=== PATIENT | female | born 1985 | race Caucasian/White ===

== ENCOUNTER 2016-08-23 19:44 | Emergency (ER) | payer OTHER ==
[2016-08-23] MEDS ORDERED: BACIGUENT PACKET TP ONE (20:35)
[2016-08-23] MEDS ORDERED: TYLENOL 325 MG PO ONE (20:35)
[2016-08-23] MEDS ORDERED: Adacel Vial IM ONE ×2 (20:35→20:56)
[2016-08-23] MEDS ORDERED: XYLOCAINE 1% HCL 20 ML MDV IJ ONE (20:35)
--- NOTE | 2016-08-23 20:41 | ERPHSYRPT ---
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 According to patient she was playing with a client having a pillow fight when she stood up and hit her head on a drywall. Initially patient's did not have any of pain however now she states that she is starting to have throbbing on the left side of her head. She has an approximately 3 cm laceration to her left scalp parietal region. She denies any loss of consciousness. Past medical history includes COPD, cervical cancer, anxiety depression., PTSD patient has hysterectomy secondary to cervical cancer. HE can go past surgical history includes hysterectomy D&C pump ectopy and orthopedic surgery. Occurred: this evening Severity: moderate Head Injury Location: parietal (left parietal) Method of Injury: other (hit head on corner of drywall) Loss of Consciousness: no loss of consciousness Associated Symptoms: headaches, No nausea, No vomiting, No abdominal pain, No shortness of breath, No heartburn, No diaphoresis, No cough, No chills, No chest pain, No fever, No loss of appetite, No malaise, No rash, No syncope, No seizure, No weakness Allergies/Adverse Reactions: No Known Drug Allergies Allergy (Verified 08/23/16 20:23) Home Medications: No Reportable Medications [No Reported Medications] 08/23/16 [History] Hx Tetanus, Diphtheria Vaccination/Date Given: No Hx Influenza Vaccination/Date Given: No Hx Pneumococcal Vaccination/Date Given: No - Review of Systems Constitutional: Other (3 cm scalp laceration left parietal region), No Fever, No Chills Eyes: No Symptoms Ears, Nose, & Throat: No Symptoms Respiratory: No Cough, No Dyspnea Cardiac: No Chest Pain, No Edema, No Syncope Abdominal/Gastrointestinal: No Abdominal Pain, No Nausea, No Vomiting, No Diarrhea Genitourinary Symptoms: No Dysuria Musculoskeletal: No Back Pain, No Neck Pain Skin: Other (3 cm scalp laceration left parietal region) Neurological: Headache, Other (head contusion), No Dizziness, No Focal Weakness , No Gait Changes, No Irritability, No Lethargy, No Paralysis, No Parasthesia, No Seizure, No Speech Changes, No Tics, No Tremors, No Vertigo Psychological: No Symptoms Endocrine: No Symptoms All Other Systems: Reviewed and Negative - Past Medical History Pertinent Past Medical History: Yes Neurological History: No Pertinent History ENT History: No Pertinent History Cardiac History: No Pertinent History Respiratory History: COPD Endocrine Medical History: No Pertinent History Musculoskeletal History: Fractures GI Medical History: No Pertinent History History: Other Psycho-Social History: Anxiety, Depression, Other Female Reproductive Disorders: Cervical Cancer Other Medical History: Orthopedics fractures. pt had a hysterectomy d/t cervical cancer when she was 27 . ptsd - Past Surgical History Past Surgical History: Yes Neuro Surgical History: No Pertinent History Cardiac: No Pertinent History Respiratory: No Pertinent History Gastrointestinal: Exploratory Laparoscopy Genitourinary: No Pertinent History Musculoskeletal: Orthopedic Surgery Female Surgical History: Hysterectomy, Dilation & Curettage, Section, Lumpectomy Other Surgical History: D&C, DIAGNOSTIC LAPROSCOPIC, LUMPECTOMY LEFT BREAST, 3 LYMPHNODES REMOVED FROM LEFT ARMPIT, UPPER/LOWER SCOPE. - Social History Smoking Status: Current every day smoker How long have you smoked: 20 years Exposure to second hand smoke: No Drug Use: marijuana Patient Lives Alone: No - Female History Hx Last Menstrual Period: hyst - Nursing Vital Signs Nursing Vital Signs: Initial Vital Signs Temperature 98.9 F Temperature Source Oral Pulse Rate 104 Respiratory Rate 18 Blood Pressure [] 120/74 Pain Intensity 4 - Lloyd Coma Score Best Eye Response (Riky): (4) open spontaneously Best Verbal Response (Riky): (5) oriented Best Motor Response (Riky): (6) obeys commands Lloyd Total: 15 - Physical Exam General Appearance: mild distress Head Injury: No no evidence of injury (3 cm hematoma left parietal region . 3 cm scalp laceration left parietal region) Eye Exam: bilateral eye: normal inspection, PERRL, EOMI, other (fundi are unremarkable) ENT Exam: airway nml Neck Exam: supple, trachea midline, full range of motion, normal alignment, other (no neck tenderness) Cardiovascular/Respiratory Exam: chest non-tender, normal breath sounds, regular rate/rhythm Gastrointestinal/Abdominal Exam: soft, non tender, no distention Back Exam: normal inspection, No vertebral tenderness Extremity Exam: non-tender, normal range of motion, normal inspection Mental Status Exam: alert, oriented x 3, cooperative lever tender Exam: normal hearing, normal speech, PERRL, tongue midline, No abnormal eye position, No abnormal gag reflex, No abnormal pupil position, No abnormal speech , No facial asymmetry, No facial droop, No facial paresthesias, No facial weakness, No gaze palsy, No hearing deficit (R), No hearing deficit (L), No tongue deviation to R, No tongue deviation to L Coordination/Gait Exam: normal finger to nose, normal gait, normal cerebellar function, negative Romberg's sign, No positive Romberg's sign, No abnormal gait , No ABN nose to finger (R), No ABN nose to finger (L) Motor/Sensory Exam: no motor deficit, no sensory deficit, CN II-XII intact DTR Exam: ankle (R): 2+, ankle (L): 2+ Skin Exam: normal color, warm, dry, other (3 cm scalp laceration left parietal region), No rash SpO2 Interpretation: normal SpO2: 99 Oxygen Delivery: Room Air - Course Nursing assessment & vital signs reviewed: Yes - CT Exams Head CT Interpretation: Negative, Tele-radiologist Report (head ct:no acute intracranioal abnormality), Other Ordered Tests: Active Orders 24 hr Category Date Time Status Wound Care STAT Care 08/23/16 20:35 Active HEAD WITHOUT CONTRAST [CT] Stat Exams 08/23/16 20:34 Taken Medication Summary Discontinued Medications Generic Name Dose Route Start Last Admin Trade Name Florina PRN Reason Stop Dose Admin Acetaminophen 650 mg 08/23/16 20:35 08/23/16 21:01 Tylenol 325 Mg PO 08/23/16 20:36 650 mg STAT ONE Administration Acetaminophen Confirm 08/23/16 20:56 Tylenol 325 Mg Administered 08/23/16 20:57 Dose 650 mg .ROUTE .STK-MED ONE Bacitracin 0.9 gm 08/23/16 20:35 08/23/16 21:00 Baciguent Packet TP 08/23/16 20:36 0.9 gm STAT ONE Administration Bacitracin Confirm 08/23/16 20:56 Baciguent Packet Administered 08/23/16 20:57 Dose 1 gm .ROUTE .STK-MED ONE Diphtheria/Tetanus/Acell Pertussis 0.5 ml 08/23/16 20:35 08/23/16 20:59 Adacel Vial IM 08/23/16 20:36 0.5 ml .ONCE ONE Administration Diphtheria/Tetanus/Acell Pertussis Confirm 08/23/16 20:56 Adacel Vial Administered 08/23/16 20:57 Dose 0.5 ml IM .STK-MED ONE Lidocaine HCl 5 ml 08/23/16 20:35 08/23/16 21:01 Xylocaine 1% Hcl 20 Ml Mdv IJ 08/23/16 20:36 5 ml STAT ONE Administration Lidocaine HCl Confirm 08/23/16 20:56 Xylocaine 1% Hcl 20 Ml Mdv Administered 08/23/16 20:57 Dose 5 ml .ROUTE .STK-MED ONE - Progress Progress: improved Progress Note: 08/23/16 21:[address] no acute changes. Laceration 3 cm left scalp parietal area. Laceration sterilely prepped and draped laceration anesthetized with 1% lidocaine. Laceration repaired with 5 surgical silvio. Bacitracin is applied. - Departure Time of Disposition: 21:42 Departure Disposition: Home Clinical Impression: Scalp laceration Head contusion Qualifiers: Encounter type: initial encounter Contusion of head detail: unspecified part of head Qualified Code(s): S00.93XA - Contusion of unspecified part of head, initial encounter Condition: Fair Critical Care Time: No Referrals: ALESSIA MYERS [Primary Care Provider] - Instructions: Care for a Laceration After Repair Additional Instructions: Return home Cold packs to area 24-48 hours. Bacitracin to area until healed. Tylenol every 4 hours as needed for pain. [place] out in 5-7 days. Follow-up with your family doctor or return if signs of infection or problems. Return for acute distress or for severe symptoms.
[2016-08-23] MEDS ORDERED: XYLOCAINE 1% HCL 20 ML MDV ONE (20:56)
[2016-08-23] MEDS ORDERED: TYLENOL 325 MG ONE (20:56)
[2016-08-23] MEDS ORDERED: BACIGUENT PACKET ONE (20:56)
[2016-08-23 21:45] VITALS: BP 116/81; PULSE 72; O2SAT 97
--- NOTE | 2016-08-24 09:35 | XRAY ---
Exam: CT of the head without IV contrast from 08/23/2016. CTDI: 52.39 Comparison: CT of the head without IV contrast from 05/02/2016. Indication: Struck head against wall, laceration left temporal-parietal area, denies loss of consciousness. Technique: Non-IV contrast axial images were obtained through the brain. Reconstructed coronal and sagittal images were created and reviewed. Findings: The ventricles are of normal size and configuration. No focal mass effect or midline shift is seen. The martinez matter-white matter interfaces are well maintained. No acute intracranial bleed or abnormal extra-axial fluid collection is seen. No focal low attenuation edema or infarct is seen. The basilar cisterns and cortical sulci appear unremarkable. There is an 8 mm retention cyst or small polyp at the upper anterior margin of the right maxillary sinus. This was not included on the prior study. The remainder of the visualized paranasal sinuses and mastoid air cells appear clear. No air-fluid levels are seen. The calvarium of the skull appears intact. However, I note some superficial left lateral scalp soft tissue injury within the lower left parietal area. Impression: 1. No acute intracranial bleed or other acute brain process is seen. 2. I note a left lateral scalp soft tissue injury. Correlate clinically. No underlying abnormality of the calvarium of the skull is seen. 3. 8 mm retention cyst versus polyp is partially seen at the anterior margin of the right maxillary sinus.
== END 2016-08-23 21:45 | disposition home or self-care (01) ==
LOC: ED 19:44
PROC: 0HQ0XZZ Repair Scalp Skin, External Approach (ICD-10-PCS; principal; 2016-08-23)
DX: S00.93XA Contusion of unspecified part of head, initial encounter (principal); S01.01XA Laceration without foreign body of scalp, initial encounter; W22.8XXA Striking against or struck by other objects, initial encounter; Y93.F9 Activity, other caregiving
CPT/HCPCS: 12002; 70450; 90471; 90715; 96372; 99284; A9270-GY

== ENCOUNTER 2017-01-31 07:52 | Emergency (ER) | payer OTHER ==
[2017-01-31 08:09] VITALS: O2SAT 98
[2017-01-31] MEDS ORDERED: Rocephin 1000 MG INJ IM ONE (08:12)
[2017-01-31] MEDS ORDERED: XYLOCAINE 1% HCL 20 ML MDV ONE (08:17)
[2017-01-31] MEDS ORDERED: Rocephin 1000 MG INJ ONE (08:17)
--- NOTE | 2017-01-31 08:18 | ERPHSYRPT ---
- History of Present Illness Time Seen by Provider: 01/31/17 07:57 Source: patient Exam Limitations: no limitations Patient Subjective Stated Complaint: pt here for cough for a couple days, no fever Triage Nursing Assessment: pt walked in resp easy, skin w/d pink, cough, nonproductive Physician History: patient with cough and sore throat for 2-3 days; fever to begin with; exposed to a patient with similar symptoms; no nausea vomiting or diarrhea; some myalgias and arthralgias; cough nonproductive; not short of breath; smoker; no travel Timing/Duration: day(s) (2-3), gradual onset, worse Cough Quality/Degree: moderate, dry cough Possible Cause: no prior episodes Modifying Factors: Improves With: coughing Associated Symptoms: fever, chills, cough, muscle aches, sore throat International travel in last 2 weeks: No Allergies/Adverse Reactions: No Known Drug Allergies Allergy (Verified 01/31/17 08:10) Home Medications: No Reportable Medications [No Reported Medications] 08/23/16 [History] Hx Tetanus, Diphtheria Vaccination/Date Given: No Hx Influenza Vaccination/Date Given: No Hx Pneumococcal Vaccination/Date Given: No Immunizations Up to Date: Yes - Review of Systems Constitutional: Fever Eyes: No Symptoms Ears, Nose, & Throat: Nose Congestion, Throat Pain, Painful Swallowing, No Ear Pain, No Sinus Drainage, No Epistaxis, No Throat Swelling Respiratory: Cough, No Dyspnea, No Wheezing Cardiac: No Chest Pain, No Palpitations, No Syncope Abdominal/Gastrointestinal: Diarrhea (3 days ago), No Abdominal Pain, No Nausea , No Vomiting Genitourinary Symptoms: No Symptoms Musculoskeletal: Arthralgias, Myalgias, No Fall, No Joint Redness Skin: No Symptoms Neurological: No Symptoms Psychological: No Symptoms Endocrine: No Symptoms Hematologic/Lymphatic: No Symptoms Immunological/Allergic: No Symptoms - Past Medical History Pertinent Past Medical History: Yes Neurological History: No Pertinent History ENT History: No Pertinent History Cardiac History: No Pertinent History Respiratory History: COPD Endocrine Medical History: No Pertinent History Musculoskeletal History: Fractures GI Medical History: No Pertinent History History: Other Psycho-Social History: Anxiety, Depression, Other Female Reproductive Disorders: Cervical Cancer Other Medical History: Orthopedics fractures. pt had a hysterectomy d/t cervical cancer when she was 27 . ptsd - Past Surgical History Past Surgical History: Yes Neuro Surgical History: No Pertinent History Cardiac: No Pertinent History Respiratory: No Pertinent History Gastrointestinal: Exploratory Laparoscopy Genitourinary: No Pertinent History Musculoskeletal: Orthopedic Surgery Female Surgical History: Hysterectomy, Dilation & Curettage, Section, Lumpectomy Other Surgical History: D&C, DIAGNOSTIC LAPROSCOPIC, LUMPECTOMY LEFT BREAST, 3 LYMPHNODES REMOVED FROM LEFT ARMPIT, UPPER/LOWER SCOPE. - Social History Smoking Status: Current every day smoker How long have you smoked: 20 years Exposure to second hand smoke: Yes Alcohol Use: Socially Drug Use: marijuana Patient Lives Alone: No Significant Family History: no pertinent family hx - Female History Hx Last Menstrual Period: hyster Hx Now: No - Nursing Vital Signs Nursing Vital Signs: Initial Vital Signs O2 Sat by Pulse Oximetry 97 01/31/17 08:00 Pain Scale Pain Intensity 0 - Physical Exam General Appearance: mild distress, alert, thin Eye Exam: PERRL/EOMI, eyes nml inspection, No photophobia Ears, Nose, Throat Exam: normal ENT inspection, TMs normal, moist mucous membranes, pharyngeal erythema, No tonsillar exudate Neck Exam: normal inspection, non-tender, supple, full range of motion, lymphadenopathy (bilateral anterior cervical), No meningismus, No JVD Respiratory Exam: lungs clear, airway intact, diminished breath sounds, other ( scattered coarse bronchovesicular breath sounds consistent with smoker), No chest tenderness, No respiratory distress, No crackles/rales, No rhonchi, No wheezing Cardiovascular Exam: regular rate/rhythm, normal heart sounds, normal peripheral pulses, capillary refill <2 sec, No murmur Gastrointestinal/Abdomen Exam: soft, normal bowel sounds, No tenderness, No guarding, No rebound, No organomegaly Pelvic Exam: deferred Rectal Exam: deferred Back Exam: normal inspection, normal range of motion, No CVA tenderness, No rash Extremity Exam: normal inspection, normal range of motion, No tanna's sign, No pedal edema Neurologic Exam: alert, oriented x 3, cooperative, 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 as tested, normal mood/affect, nml cerebellar function, nml station & gait, sensation nml Skin Exam: normal color, warm, dry, No rash, No petechiae, No cyanosis Lymphatic Exam: adenopathy (anterior cervical) SpO2 Interpretation: normal SpO2: 98 Oxygen Delivery: Room Air - Course Nursing assessment & vital signs reviewed: Yes Ordered Tests: Active Orders 24 hr Category Date Time Status Pulse Oximetry (ED) STAT Care 01/31/17 08:11 Active Medication Summary Discontinued Medications Generic Name Dose Route Start Last Admin Trade Name Florina PRN Reason Stop Dose Admin Ceftriaxone Sodium 1,000 mg 01/31/17 08:12 01/31/17 08:19 Rocephin 1000 Mg Inj IM 01/31/17 08:13 1,000 mg STAT ONE Administration Ceftriaxone Sodium Confirm 01/31/17 08:17 Rocephin 1000 Mg Inj Administered 01/31/17 08:18 Dose 1,000 mg .ROUTE .STK-MED ONE Lidocaine HCl Confirm 01/31/17 08:17 Xylocaine 1% Hcl 20 Ml Mdv Administered 01/31/17 08:18 Dose 3 ml .ROUTE .STK-MED ONE - Progress Progress: improved (after meds), re-examined (after medications) Air Movement: good Progress Note: 01/31/17 08:17 discussed treatment plan and patient elected to forego the strep test and be treated clinically;medications administered and will recheck and given instructions 01/31/17 08:18 discussed smoking cessation 01/31/17 08:51 rechecked and instructions given; discussed smoking cessation again and relative to her sons illness as well Blood Culture(s) Obtained: No Antibiotics given: Yes Counseled pt/family regarding: lab results, diagnosis, smoking cessation - Departure Time of Disposition: 08:52 Departure Disposition: Home Clinical Impression: Acute pharyngitis Condition: Stable Critical Care Time: No Referrals: ALESSIA MYERS [Primary Care Provider] - Instructions: Cough -- Adult Additional Instructions: rest; clear fluids Tylenol/Motrin when necessary; stop smoking; no work due to contagious 48 hours; OTC cough and cold meds Follow-up with family doctor as directed. Call for appointment. Return if any problems. If you smoke please stop. Call or follow up with your family doctor for assistance if you need it to stop. Please wear your seatbelt when driving. Have a nice day. Thank you for allowing us to participate in your care today. :o) Dr Srikanth Bruner
[2017-01-31 09:03] VITALS: BP 136/82; PULSE 76
== END 2017-01-31 09:20 | disposition home or self-care (01) ==
LOC: ED 07:52
DX: J02.9 Acute pharyngitis, unspecified (principal); R05 Cough; R50.9 Fever, unspecified
CPT/HCPCS: 96372; 99284; J0696

== ENCOUNTER 2017-06-18 09:58 | Emergency (ER) | payer OTHER ==
[2017-06-18] MEDS ORDERED: TORAdol 30 mg Injection IM ONE (10:34)
--- NOTE | 2017-06-18 10:39 | ERPHSYRPT ---
- History of Present Illness Time Seen by Provider: 06/18/17 10:31 Source: patient Exam Limitations: no limitations Patient Subjective Stated Complaint: fell on ice this am injuring left elbow Triage Nursing Assessment: to room per self. skin w/d, color normal, resp nonlabored. left elbow tender to touch, slight swelling noted. good radial pulse and good cap refill Physician History: This is a 32-year-old white female with history of COPD cervical cancer anxiety depression Who apparently has had fractures of her right elbow in the past. She arrives with complaint of pain in her left posterior elbow worse with movement after slipping on the ice and falling at approximately 7:30 this morning. She denies any other complaints. Past medical history includes COPD, cervical cancer, anxiety, depression, fractures, posttraumatic stress disorder. Past surgical history includes hysterectomy, orthopedic surgery, D&C, , lumpectomy of left breast. Occurred: just prior to arrival (7:30 this morning) Method of Injury: fell Quality: constant Severity of Pain-Max: moderate Severity of Pain-Current: moderate Extremities Pain Location: elbow: left Modifying Factors: Improves With: movement Associated Symptoms: No back pain, No chills, No chest discomfort, No chest pain , No dyspnea, No fever, No jaw pain, No nausea, No neck pain, No sweating, No short of breath, No vomiting Allergies/Adverse Reactions: No Known Drug Allergies Allergy (Verified 06/18/17 10:27) Hx Tetanus, Diphtheria Vaccination/Date Given: No Hx Influenza Vaccination/Date Given: No Hx Pneumococcal Vaccination/Date Given: No - Review of Systems Constitutional: No Symptoms Eyes: No Symptoms Ears, Nose, & Throat: No Symptoms Respiratory: No Cough, No Dyspnea Cardiac: No Chest Pain, No Edema, No Syncope Abdominal/Gastrointestinal: No Abdominal Pain, No Nausea, No Vomiting, No Diarrhea Genitourinary Symptoms: No Dysuria Musculoskeletal: Other (left elbow pain) Skin: No Rash Neurological: No Dizziness, No Focal Weakness, No Sensory Changes Psychological: No Symptoms Endocrine: No Symptoms All Other Systems: Reviewed and Negative - Past Medical History Pertinent Past Medical History: Yes Neurological History: No Pertinent History ENT History: No Pertinent History Cardiac History: No Pertinent History Respiratory History: COPD Endocrine Medical History: No Pertinent History Musculoskeletal History: Fractures GI Medical History: No Pertinent History History: Other Psycho-Social History: Anxiety, Depression, Other Female Reproductive Disorders: Cervical Cancer Other Medical History: Orthopedics fractures. pt had a hysterectomy d/t cervical cancer when she was 27 . ptsd - Past Surgical History Past Surgical History: Yes Neuro Surgical History: No Pertinent History Cardiac: No Pertinent History Respiratory: No Pertinent History Gastrointestinal: Exploratory Laparoscopy Genitourinary: No Pertinent History Musculoskeletal: Orthopedic Surgery Female Surgical History: Hysterectomy, Dilation & Curettage, Section, Lumpectomy Other Surgical History: D&C, DIAGNOSTIC LAPROSCOPIC, LUMPECTOMY LEFT BREAST, 3 LYMPHNODES REMOVED FROM LEFT ARMPIT, UPPER/LOWER SCOPE. - Social History Smoking Status: Current every day smoker How long have you smoked: 15 Exposure to second hand smoke: Yes Alcohol Use: Socially Drug Use: marijuana Patient Lives Alone: No Significant Family History: no pertinent family hx - Female History Hx Now: No - Nursing Vital Signs Nursing Vital Signs: Initial Vital Signs Temperature 97.8 F 06/18/17 10:16 Pulse Rate 87 06/18/17 10:16 Respiratory Rate 16 06/18/17 10:16 Blood Pressure 132/86 06/18/17 10:16 O2 Sat by Pulse Oximetry 96 06/18/17 10:16 Pain Scale Pain Intensity 5 - Physical Exam General Appearance: mild distress, anxiety Eyes, Ears, Nose, Throat Exam: moist mucous membranes Neck Exam: non-tender, supple Cardiovascular/Respiratory Exam: chest non-tender, normal breath sounds, regular rate/rhythm, no respiratory distress Abdominal Exam: non-tender, No guarding Back Exam: normal inspection, No vertebral tenderness Shoulder Exam: normal inspection, non-tender, no evidence of injury, normal ROM Elbow/Forearm Exam: No normal inspection (left elbow tender with palpation posteriorly, decreased range of motion left elbow secondary to pain) Wrist Exam: normal inspection, non-tender, no evidence of injury, normal ROM Hand Exam: normal inspection, non-tender, no evidence of injury, normal ROM Neuro/Tendon Exam: normal sensation, normal motor functions Mental Status Exam: alert, oriented x 3, cooperative Skin Exam: normal color, warm, dry SpO2 Interpretation: normal (96%) SpO2: 96 Oxygen Delivery: Room Air - Course Nursing assessment & vital signs reviewed: Yes Ordered Tests: Active Orders 24 hr Category Date Time Status Sling Application STAT Care 06/18/17 10:56 Active ELBOW (MINIMUM 3 VIEWS) Stat Exams 06/18/17 10:34 Taken Medication Summary Discontinued Medications Generic Name Dose Route Start Last Admin Trade Name Angeloq PRN Reason Stop Dose Admin Ketorolac Tromethamine 60 mg 06/18/17 10:34 06/18/17 10:45 Toradol 30 Mg Injection IM 06/18/17 10:35 60 mg STAT ONE Administration Ketorolac Tromethamine Confirm 06/18/17 10:43 Toradol 30 Mg Injection Administered 06/18/17 10:44 Dose 60 mg .ROUTE .STK-MED ONE - Progress Progress: improved Progress Note: 06/18/17 11:01 32-year-old white female arrives with complaint of left elbow pain after falling on the ice this morning. Patient has pain with palpation the posterior left elbow decreased range of motion the left elbow secondary to pain. X-ray of the left elbow no fractures no dislocations. Patient is given Toradol for pain. Will plan to discharge with prescription for Barnard. Will place Yuri wrap on the left elbow and also place patient in a sling. Is a sling - Departure Time of Disposition: 11:02 Departure Disposition: Home Clinical Impression: Left elbow pain Accidental fall Qualifiers: Encounter type: initial encounter Qualified Code(s): W19.XXXA - Unspecified fall, initial encounter Contusion of left elbow Qualifiers: Encounter type: initial encounter Qualified Code(s): S50.02XA - Contusion of left elbow, initial encounter Condition: Fair Critical Care Time: No Referrals: ALESSAI MYERS [Primary Care Provider] - Additional Instructions: Return home. Ice and elevate left elbow 24-48 hours. May use sling left arm 2 days. Barnard 5/325 one orally every 4-6 hours as needed for pain #12. Follow-up with your family doctor if symptoms are worse, no better in 48 hours, or persist longer than one week. Return for acute distress or for severe symptoms. Prescriptions: Hydrocodone/Acetaminophen [Barnard 5-325 Tablet] 1 tab PO Q4-6HPRN PRN #12 tablet MDD 6 tablets PRN Reason: pain
[2017-06-18] MEDS ORDERED: TORAdol 30 mg Injection ONE (10:43)
[2017-06-18 11:04] VITALS: BP 112/69; PULSE 72
[2017-06-18 11:06] VITALS: O2SAT 96
--- NOTE | 2017-06-18 20:49 | XRAY ---
Indication: Pain following fall. Comparison: None 3 views of the left elbow obtained. No bony, articular, or soft tissue abnormalities.
== END 2017-06-18 11:19 | disposition home or self-care (01) ==
LOC: ED 09:58
DX: M25.522 Pain in left elbow (principal); W19.XXXA Unspecified fall, initial encounter; S50.02XA Contusion of left elbow, initial encounter
CPT/HCPCS: 73080; 96372; 99284; J1885

== ENCOUNTER 2017-08-10 10:40 | Emergency (ER) | payer OTHER ==
[2017-08-10 11:19] VITALS: BP 128/77; PULSE 79; O2SAT 100
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
== END 2017-08-10 13:20 | disposition home or self-care (01) ==
LOC: ED 10:40
DX: S40.012A Contusion of left shoulder, initial encounter (principal); V47.5XXA Car driver injured in collision with fixed or stationary object in traffic accident, initial encounter
CPT/HCPCS: 71046; 73030; 99283

== ENCOUNTER 2017-11-11 19:09 | Emergency (ER) | payer OTHER ==
[2017-11-11] MEDS ORDERED: TORAdol 30 mg Injection IV ONE (19:52)
[2017-11-11] MEDS ORDERED: TORAdol 30 mg Injection ONE (19:54)
[2017-11-11 20:04] LABS: BASOPHIL % 0.1 % (0.0-0.4); Basophil (Absolute #) 0.01 (0-0.4); Eosinophil % 1.4 % (0.00-5.0); Granulocyte Absolute (ANC) 3.39 (1.4-6.9); Granulocytes % 47.3 % (36.0-66.0); Hematocrit 38.6 % (35-47); Hemoglobin 12.9 gm/dl (12.0-16.0); Lymphocyte (Absolute #) 3.09 (1.0-4.6); Lymphocytes % 43.2 % (24.0-44.0); Mean Cell Volume 99.5 fl (78-100); Mean Corpuscular Hemoglobin 33.2 pg (26-32); Mean Corpuscular Hgb Concent. 33.4 g/dl (32-36); Mean Platelet Volume 10.2 fl (6-9.5); Monocyte (Absolute #) 0.57 (0.0-1.3); Platelet Count 242 K/mm3 (150-450); Red Blood Count 3.88 M/mm3 (4.1-5.4); White Blood Count 7.2 K/mm3 (4.0-10.5)
--- NOTE | 2017-11-11 20:11 | ERPHSYRPT ---
- History of Present Illness Time Seen by Provider: 11/11/17 19:30 Historian: patient Exam Limitations: no limitations Patient Subjective Stated Complaint: pt c/o sharp pain in her rt lower quad, states it has been going on for a few weeks but has increased today. Triage Nursing Assessment: pt alert and oriented, asnwers questions approp. pt ambulatory with steady gait noted. skin ppink warm anddry. respirations nonlabored with lungs cta. abd soft and nontender to light palpation. bowel sounds present x4 quads and hyper. no tenderness noted to lower back. Physician History: 32 y/o female comes to the ER with complaints of RLQ abdominal pain for the past 2 weeks that got worse today. Pt states that she thought it was a pinched nerve. Pt describes the pain as sharp, constant, 4/10, with radiation down the right thigh and pt has not taken any pain meds. Pt admits to decrease appetite. Pt denies any fever, chills, nausea, vomiting, diarrhea, constipation or urinary symptoms. Timing/Duration: week(s) Activities at Onset: none Quality: sharpness Abdominal Pain Onset Location: RLQ Pain Radiation: groin Severity of Pain-Max: moderate Severity of Pain-Current: moderate Modifying Factors: Improves With: nothing Associated Symptoms: loss of appetite Previous symptoms: no prior history Allergies/Adverse Reactions: No Known Drug Allergies Allergy (Verified 11/11/17 19:33) Hx Tetanus, Diphtheria Vaccination/Date Given: Yes Hx Influenza Vaccination/Date Given: No Hx Pneumococcal Vaccination/Date Given: No Immunizations Up to Date: Yes - Review of Systems Constitutional: No Fever, No Chills Eyes: No Symptoms Ears, Nose, & Throat: No Symptoms Respiratory: No Cough, No Dyspnea Cardiac: No Chest Pain, No Edema, No Syncope Abdominal/Gastrointestinal: Abdominal Pain, No Nausea, No Vomiting, No Diarrhea Genitourinary Symptoms: No Dysuria Musculoskeletal: Myalgias, No Back Pain, No Neck Pain Skin: No Rash Neurological: No Dizziness, No Focal Weakness, No Sensory Changes Psychological: No Symptoms Endocrine: No Symptoms All Other Systems: Reviewed and Negative - Past Medical History Pertinent Past Medical History: Yes Neurological History: No Pertinent History ENT History: No Pertinent History Cardiac History: No Pertinent History Respiratory History: COPD Endocrine Medical History: No Pertinent History Musculoskeletal History: Fractures GI Medical History: No Pertinent History History: Other Psycho-Social History: Anxiety, Depression, Other Female Reproductive Disorders: Cervical Cancer Other Medical History: Orthopedics fractures. pt had a hysterectomy d/t cervical cancer when she was 27 . ptsd - Past Surgical History Past Surgical History: Yes Neuro Surgical History: No Pertinent History Cardiac: No Pertinent History Respiratory: No Pertinent History Gastrointestinal: Exploratory Laparoscopy Genitourinary: No Pertinent History Musculoskeletal: Orthopedic Surgery Female Surgical History: Hysterectomy, Dilation & Curettage, Section, Lumpectomy Other Surgical History: D&C, DIAGNOSTIC LAPROSCOPIC, LUMPECTOMY LEFT BREAST, 3 LYMPHNODES REMOVED FROM LEFT ARMPIT, UPPER/LOWER SCOPE. - Social History Smoking Status: Current every day smoker How long have you smoked: 15 Exposure to second hand smoke: Yes Alcohol Use: Socially Drug Use: none Patient Lives Alone: No Significant Family History: no pertinent family hx - Female History Hx Last Menstrual Period: hyster Hx Now: No - Nursing Vital Signs Nursing Vital Signs: Initial Vital Signs Temperature 97.9 F 11/11/17 19:21 Pulse Rate 92 H 11/11/17 19:21 Respiratory Rate 18 11/11/17 19:21 Blood Pressure 123/90 11/11/17 19:21 O2 Sat by Pulse Oximetry 100 11/11/17 19:21 Pain Scale Pain Intensity 6 - Physical Exam General Appearance: no apparent distress, alert Eye Exam: PERRL/EOMI, eyes nml inspection Ears, Nose, Throat Exam: normal ENT inspection, pharynx normal, moist mucous membranes Neck Exam: normal inspection, non-tender, supple, full range of motion Respiratory Exam: normal breath sounds, lungs clear, No respiratory distress Cardiovascular Exam: regular rate/rhythm, normal heart sounds Gastrointestinal/Abdomen Exam: soft, normal bowel sounds, tenderness (rlq abdominal tenderness), No mass Back Exam: normal inspection, normal range of motion, other (positive right leg raise), No CVA tenderness, No vertebral tenderness Extremity Exam: normal inspection, normal range of motion, pelvis stable Neurologic Exam: alert, oriented x 3, cooperative, normal mood/affect, nml cerebellar function, sensation nml, No motor deficits Skin Exam: normal color, warm, dry SpO2: 98 Oxygen Delivery: Room Air - Course Nursing assessment & vital signs reviewed: Yes Ordered Tests: Active Orders 24 hr Category Date Time Status IV Insertion STAT Care 11/11/17 19:25 Active ABDOMEN AND PELVIS W CONTRAST [CT] Stat Exams 11/11/17 19:52 Taken AMYLASE Stat Lab 11/11/17 19:20 Completed CBC W DIFF Stat Lab 11/11/17 19:20 Completed CMP Stat Lab 11/11/17 19:20 Completed HCG QUALITATIVE,SERUM Stat Lab 11/11/17 19:20 Completed LIPASE Stat Lab 11/11/17 19:20 Completed Lactic Acid Stat Lab 11/11/17 19:52 Completed UA W/RFX UR CULTURE Stat Lab 11/11/17 20:43 Completed Medication Summary Discontinued Medications Generic Name Dose Route Start Last Admin Trade Name Freq PRN Reason Stop Dose Admin Ketorolac Tromethamine 30 mg 11/11/17 19:52 11/11/17 19:56 Toradol 30 Mg Injection IV 11/11/17 19:53 30 mg STAT ONE Administration Ketorolac Tromethamine Confirm 11/11/17 19:54 Toradol 30 Mg Injection Administered 11/11/17 19:55 Dose 30 mg .ROUTE .STK-MED ONE Morphine Sulfate 4 mg 11/11/17 20:41 11/11/17 20:47 Morphine Sulfate 4 Mg Inj IV 11/11/17 20:42 4 mg STAT ONE Administration Morphine Sulfate Confirm 11/11/17 20:43 Morphine Sulfate 4 Mg Inj Administered 11/11/17 20:44 Dose 4 mg .ROUTE .STK-MED ONE Ondansetron HCl 4 mg 11/11/17 20:41 11/11/17 20:47 Zofran 4 Mg/2 Ml Vial IV 11/11/17 20:42 4 mg STAT ONE Administration Ondansetron HCl Confirm 11/11/17 20:43 Zofran 4 Mg/2 Ml Vial Administered 11/11/17 20:44 Dose 4 mg .ROUTE .STK-MED ONE Lab/Rad Data: Laboratory Result Diagrams 11/11/17 19:20 11/11/17 19:20 Laboratory Results 11/11/17 11/11/17 11/11/17 Range/Units 20:43 19:52 19:20 WBC (4.0-10.5) K/mm3 RBC (4.1-5.4) M/mm3 Hgb (12.0-16.0) gm/dl Hct (35-47) % MCV (78-100) fl MCH (26-32) pg MCHC (32-36) g/dl RDW (11.5-14.0) % Plt Count (150-450) K/mm3 MPV (6-9.5) fl Gran % (36.0-66.0) % Eos # (Auto) (0-0.5) Absolute Lymphs (auto) (1.0-4.6) Absolute Monos (auto) (0.0-1.3) Lymphocytes % (24.0-44.0) % Monocytes % (0.0-12.0) % Eosinophils % (0.00-5.0) % Basophils % (0.0-0.4) % Absolute Granulocytes (1.4-6.9) Basophils # (0-0.4) Sodium (137-145) mmol/L Potassium (3.5-5.1) mmol/L Chloride (98-107) mmol/L Carbon Dioxide (22-30) mmol/L Anion Gap (5-15) MEQ/L BUN (7-17) mg/dL Creatinine (0.52-1.04) mg/dL Estimated GFR ML/MIN Glucose (74-106) mg/dL Lactic Acid 0.9 (0.4-2.0) Calcium (8.4-10.2) mg/dL Total Bilirubin (0.2-1.3) mg/dL AST (14-36) U/L ALT (0-35) U/L Alkaline Phosphatase (38-126) U/L Serum Total Protein (6.3-8.2) g/dL Albumin (3.5-5.0) g/dL Amylase (30-110) U/L Lipase (23-300) U/L Serum , Qual NEGATIVE (Negative) Ur Collection Type CLEAN CATCH Urine Color LT.YELLOW (YELLOW) Urine Appearance HAZY (CLEAR) Urine pH 8.0 (5-6) Ur Specific [place] 1.005 (1.005-1.025) Urine Protein NEGATIVE (Negative) Urine Ketones NEGATIVE (NEGATIVE) Urine Blood NEGATIVE (0-5) [place]/ul Urine Nitrite NEGATIVE (NEGATIVE) Urine Bilirubin NEGATIVE (NEGATIVE) Urine Urobilinogen NORMAL (0-1) mg/dL Ur Leukocyte Esterase NEGATIVE (NEGATIVE) Urine Culture Reflexed NO (NO) Urine Glucose NEGATIVE (NEGATIVE) mg/dL Specimen Received 11/11/17203911/11/17 11/11/17 Range/Units 19:20 19:20 WBC 7.2 (4.0-10.5) K/mm3 RBC 3.88 L (4.1-5.4) M/mm3 Hgb 12.9 (12.0-16.0) gm/dl Hct 38.6 (35-47) % MCV 99.5 (78-100) fl MCH 33.2 H (26-32) pg MCHC 33.4 (32-36) g/dl RDW 13.0 (11.5-14.0) % Plt Count 242 (150-450) K/mm3 MPV 10.2 H (6-9.5) fl Gran % 47.3 (36.0-66.0) % Eos # (Auto) 0.10 (0-0.5) Absolute Lymphs (auto) 3.09 (1.0-4.6) Absolute Monos (auto) 0.57 (0.0-1.3) Lymphocytes % 43.2 (24.0-44.0) % Monocytes % 8.0 (0.0-12.0) % Eosinophils % 1.4 (0.00-5.0) % Basophils % 0.1 (0.0-0.4) % Absolute Granulocytes 3.39 (1.4-6.9) Basophils # 0.01 (0-0.4) Sodium 142 (137-145) mmol/L Potassium 3.8 (3.5-5.1) mmol/L Chloride 107 (98-107) mmol/L Carbon Dioxide 28 (22-30) mmol/L Anion Gap 10.9 (5-15) MEQ/L BUN 13 (7-17) mg/dL Creatinine 0.63 (0.52-1.04) mg/dL Estimated GFR > 60.0 ML/MIN Glucose 94 (74-106) mg/dL Lactic Acid (0.4-2.0) Calcium 9.5 (8.4-10.2) mg/dL Total Bilirubin 0.30 (0.2-1.3) mg/dL AST 19 (14-36) U/L ALT 13 (0-35) U/L Alkaline Phosphatase 57 (38-126) U/L Serum Total Protein 6.9 (6.3-8.2) g/dL Albumin 4.5 (3.5-5.0) g/dL Amylase 39 (30-110) U/L Lipase 31 (23-300) U/L Serum , Qual (Negative) Ur Collection Type Urine Color (YELLOW) Urine Appearance (CLEAR) Urine pH (5-6) Ur Specific [place] (1.005-1.025) Urine Protein (Negative) Urine Ketones (NEGATIVE) Urine Blood (0-5) [place]/ul Urine Nitrite (NEGATIVE) Urine Bilirubin (NEGATIVE) Urine Urobilinogen (0-1) mg/dL Ur Leukocyte Esterase (NEGATIVE) Urine Culture Reflexed (NO) Urine Glucose (NEGATIVE) mg/dL Specimen Received - Progress Progress: improved Progress Note: 11/11/17 21:[address] scan abd/pelvis shows a right sided ovarian cyst. The UA and the rest of the labs are within normal limits. Pt will be d/c home on toradol. Pt will be seen by her [facility] doctor for a F/U pelvic US - Departure Time of Disposition: 21:05 Departure Disposition: Home Clinical Impression: Ovarian cyst Qualifiers: Laterality: right Qualified Code(s): N83.201 - Unspecified ovarian cyst, right side Condition: Stable Critical Care Time: No Referrals: ALESSIA MYERS [Primary Care Provider] - Instructions: Ovarian Cyst (DC) Additional Instructions: Follow up with your [facility] doctor in the next couple of days. Prescriptions: Ketorolac Tromethamine [Toradol] 10 mg PO QID PRN #20 tablet PRN Reason: Pain
[2017-11-11 20:25] LABS: ALBUMIN 4.5 g/dL (3.5-5.0); ALKALINE PHOSPHATASE 57 U/L (38-126); AMYLASE 39 U/L (30-110); ANION GAP 10.9 MEQ/L (5-15); BLOOD UREA NITROGEN 13 mg/dL (7-17); CHLORIDE 107 mmol/L (98-107); Calcium 9.5 mg/dL (8.4-10.2); Carbon Dioxide 28 mmol/L (22-30); Creatinine 1 0.63 mg/dL (0.52-1.04); Glucose 94 mg/dL (74-106); LIPASE 31 U/L (23-300); Potassium 3.8 mmol/L (3.5-5.1); SGOT/AST 19 U/L (14-36); SGPT/ALT 13 U/L (0-35); SODIUM 142 mmol/L (137-145); Total Protein 6.9 g/dL (6.3-8.2)
[2017-11-11] MEDS ORDERED: Zofran 4 MG/2 ML VIAL IV ONE (20:41)
[2017-11-11] MEDS ORDERED: MORPHINE SULFATE 4 MG INJ IV ONE (20:41)
[2017-11-11] MEDS ORDERED: Zofran 4 MG/2 ML VIAL ONE (20:43)
[2017-11-11] MEDS ORDERED: MORPHINE SULFATE 4 MG INJ ONE (20:43)
[2017-11-11 21:01] LABS: Appearance HAZY (CLEAR); Bilirubin NEGATIVE (NEGATIVE); Blood NEGATIVE Ery/ul (0-5); Glucose NEGATIVE (NEGATIVE); Ketones NEGATIVE (NEGATIVE); Leukocyte Esterase NEGATIVE (NEGATIVE); Nitrite NEGATIVE (NEGATIVE); Protein,Urine Dip NEGATIVE (Negative); Specific Gravity 1.005 (1.005-1.025); Urobilinogen NORMAL mg/dL (0-1)
[2017-11-11 21:07] VITALS: O2SAT 98
[2017-11-11 21:24] VITALS: BP 103/58; PULSE 66
--- NOTE | 2017-11-12 07:56 | XRAY ---
Indication: Right lower quadrant abdominal pain. Constipation. Multiple contiguous axial images obtained through the abdomen and pelvis using 80 cc Isovue 370 contrast only. Comparison: May 02, 2016. Lung bases again demonstrate mild bibasilar dependent atelectasis. No infiltrate or effusion. Heart is not enlarged. Noncontrasted stomach and bowel loops appear nonobstructed. Normal appendix best seen coronal reformatted images. New 2.9 cm right ovary cyst. Again previous hysterectomy. No free fluid/air. Remaining liver, gallbladder, pancreas, spleen, adrenal glands, kidneys, ureters, bladder, and aorta appear unremarkable. Osseous structures intact. Impression: 1. New 2.9 cm right ovary cyst. 2. Remaining CT abdomen/pelvis with contrast exam is negative. Comment: Preliminary interpretation was made by [facility]. No discrepancy. CTDI 9.07
== END 2017-11-11 21:24 | disposition home or self-care (01) ==
LOC: ED 19:09
DX: N83.201 Unspecified ovarian cyst, right side (principal); R10.31 Right lower quadrant pain
CPT/HCPCS: 36000; 36415; 74177; 80053; 81002; 82150; 83605; 83690; 84703; 85025; 96374; 96375; 99284; J1885; J2270; J2405

== ENCOUNTER 2017-12-15 22:16 | Emergency (ER) | payer OTHER ==
[2017-12-15 22:33] VITALS: BP 125/86; O2SAT 99
--- NOTE | 2017-12-15 22:41 | ERPHSYRPT ---
- History of Present Illness Time Seen by Provider: 12/15/17 22:38 Source: patient Exam Limitations: no limitations Patient Subjective Stated Complaint: pt is alert and oriented. pt is ambulatory with a slight limp. pt comes in with complaint of left lower anterior leg pain extending from her mid calf to the ankle along her salguero. pt denies injury, sensation loss. pedal pulses present and strong. no swelling, bruising, or redness noted. no open areas noted. Triage Nursing Assessment: see above Physician History: pt comes in with complaint of left lower anterior leg pain extending from her mid calf to the ankle along her salguero. pt denies injury, sensation loss. pedal pulses present and strong. no swelling, bruising, or redness noted. no open areas noted. Method of Injury: unknown Occurred: yesterday Quality: constant Severity of Pain-Max: moderate Severity of Pain-Current: moderate Lower Extremities Pain: leg: left Modifying Factors: Improves With: nothing Associated Symptoms: none Allergies/Adverse Reactions: No Known Drug Allergies Allergy (Verified 12/15/17 22:34) Hx Tetanus, Diphtheria Vaccination/Date Given: Yes Hx Influenza Vaccination/Date Given: No Hx Pneumococcal Vaccination/Date Given: No Immunizations Up to Date: Yes - Review of Systems Constitutional: No Symptoms Musculoskeletal: Other (left leg mid area pain), No Deformity, No Fall, No Joint Redness, No Joint Pain, No Joint Swelling - Past Medical History Pertinent Past Medical History: Yes Neurological History: No Pertinent History ENT History: No Pertinent History Cardiac History: No Pertinent History Respiratory History: COPD Endocrine Medical History: No Pertinent History Musculoskeletal History: Fractures GI Medical History: No Pertinent History History: Other Psycho-Social History: Anxiety, Depression, Other Female Reproductive Disorders: Cervical Cancer Other Medical History: Orthopedics fractures. pt had a hysterectomy d/t cervical cancer when she was 27 . ptsd - Past Surgical History Past Surgical History: Yes Neuro Surgical History: No Pertinent History Cardiac: No Pertinent History Respiratory: No Pertinent History Gastrointestinal: Exploratory Laparoscopy Genitourinary: No Pertinent History Musculoskeletal: Orthopedic Surgery Female Surgical History: Hysterectomy, Dilation & Curettage, Section, Lumpectomy Other Surgical History: D&C, DIAGNOSTIC LAPROSCOPIC, LUMPECTOMY LEFT BREAST, 3 LYMPHNODES REMOVED FROM LEFT ARMPIT, UPPER/LOWER SCOPE. - Social History Smoking Status: Current every day smoker How long have you smoked: 20 years Exposure to second hand smoke: Yes Alcohol Use: Socially Drug Use: none Patient Lives Alone: No Significant Family History: no pertinent family hx - Female History Hx Now: No - Nursing Vital Signs Nursing Vital Signs: Initial Vital Signs Temperature 97.9 F 12/15/17 22:19 Pulse Rate 86 12/15/17 22:19 Respiratory Rate 16 12/15/17 22:19 Blood Pressure 125/86 12/15/17 22:19 O2 Sat by Pulse Oximetry 99 12/15/17 22:19 Pain Scale Pain Intensity 5 - Physical Exam General Appearance: no apparent distress Legs Exam: left leg: pain, soft tissue tenderness SpO2: 99 Oxygen Delivery: Room Air - Course Nursing assessment & vital signs reviewed: Yes - Radiology Exams Lower Leg X-ray Interpretation: Reviewed by me, Negative, No Fracture Ordered Tests: Active Orders 24 hr Category Date Time Status LOWER LEG Stat Exams 12/15/17 22:37 Ordered - Progress Progress: unchanged, pain not gone completely Counseled pt/family regarding: diagnosis, need for follow-up, rad results - Departure Time of Disposition: 22:51 Departure Disposition: Home Clinical Impression: Contusion of left lower leg Qualifiers: Encounter type: initial encounter Qualified Code(s): S80.12XA - Contusion of left lower leg, initial encounter Condition: Good Critical Care Time: No Referrals: ALESSIA MYERS [Primary Care Provider] - Instructions: Contusion (DC) Additional Instructions: SPRAINS/STRAINS/CONTUSIONS 1. Rest the affected area as much as possible for the next few days. 2. Apply ice to the affected area for 20-30 minutes at a time, several times a day. 3. If you receive an elastic wrap, wear it only while awake for comfort and support. Re-wrap the elastic wrap if it feels too tight or too loose. 4. If swelling is present, elevate the affected part above the level of the heart for at least 2 to 3 days. 5. Use splints, slings, or crutches as instructed. 6. Watch for severe swelling, coldness, numbness, and discoloration of the fingers and toes. See your family physician or return to the emergency department if any of these are noted. Please follow the instructions given to you. Please take your medication as prescribed if given. If symptoms recur or get worse, come back to the emergency room if you cannot reach your primary care physician, or call your primary care physician for an appointment. Again if your symptoms get worse, come back to the emergency room. Thanks for visiting emergency room, and let us take care of you. ESTEPHANIELADI HDZ was seen on 12/15/17 n the Emergency Room. At that time you were treated for an emergent condition, during your visit Laboratory, Radiology and/or other procedures may have been ordered. It is very important that you follow-up with your Primary Care Physician ALESSIA MYERS within the next 24-48 hours to review your Emergency Room visit and the final results of testing that was ordered. Some test results such as Urine Cultures, Blood Cultures, and other cultures if ordered will not be finalized for 24-48 hours. If you do not have a Primary Care Provider please call the medical records department at [phone] to obtain a copy of your results or you may sign into our patient portal to obtain these results by visiting us @ [email or web address] and completing the following steps: 1. Click on the Patient Portal link 2. Click the Patient Self Enrollment Link to complete the enrollment form and entering your 3. Once the enrollment form is completed you will receive an email with a temporary ID and password at the email address you provided. 4. Next choose a user name and password. Your user name must be at least 4 characters long and your password must be at least 4 characters long. 5. Choose a security question from the list and provide your answer to the question. If you already have signed into the Health Portal you may access your Health Care Information 28/11 by the following steps: 1. Login to our website @ [email or web address] 2. Enter your original user name and password. FAQS The [facility] Health Portal is an online tool that contains your Lab Results, Radiology Reports, Visit History, Discharge Instructions and Health Summary Lab and Radiology Results will not be available for 72 hours on the portal. The Portal is a secure site, passwords are encryted and URLs are re-written so they cannot be copied and pasted. You and authorized family members are the only ones who can access your Portal. Also there is a timeout feature that protects your information if you leave the Portal page open. If you have technical difficulty please use the Contact Us link on the page this will allow you to submit any questions you have regarding the Portal or you may contact the Medical Record Department at [phone]. Prescriptions: Naproxen 375 mg [Naprosyn 375 mg] 375 mg PO Q8H #30 tablet
[2017-12-15] MEDS ORDERED: TORAdol 30 mg Injection IM ONE (22:51)
[2017-12-15] MEDS ORDERED: TORAdol 30 mg Injection ONE (22:56)
[2017-12-15 23:09] VITALS: PULSE 87
--- NOTE | 2017-12-16 06:29 | XRAY ---
Indication: Distal leg/foot pain/swelling one day. No known injury. Comparison: None 2 views of the left lower leg demonstrates normal bones, articulation, and soft tissues.
== END 2017-12-15 23:09 | disposition home or self-care (01) ==
LOC: ED 22:16
DX: S80.12XA Contusion of left lower leg, initial encounter (principal)
CPT/HCPCS: 73590; 96372; 99284; J1885

== ENCOUNTER 2018-09-17 11:22 | Emergency (ER) | payer MEDICAID, OTHER ==
[2018-09-17 11:38] VITALS: O2SAT 99
[2018-09-17] MEDS ORDERED: Sodium Chloride 0.9% 1000 ML 1,000 ML IV STA (11:49)
[2018-09-17] MEDS ORDERED: Sodium Chloride 0.9% 1000 ML 1,000 ML ONE (11:57)
[2018-09-17 12:09] LABS: BASOPHIL % 0.3 % (0.0-0.4); Basophil (Absolute #) 0.02 (0-0.4); Eosinophil % 1.5 % (0.00-5.0); Eosinophil (Absolute #) 0.11 (0-0.5); Granulocyte Absolute (ANC) 4.27 (1.4-6.9); Granulocytes % 58.3 % (36.0-66.0); Hematocrit 39.8 % (35-47); Hemoglobin 13.4 gm/dl (12.0-16.0); Lymphocyte (Absolute #) 2.41 (1.0-4.6); Lymphocytes % 32.9 % (24.0-44.0); Mean Cell Volume 100.3 fl (78-100); Mean Corpuscular Hgb Concent. 33.7 g/dl (32-36); Mean Platelet Volume 9.6 fl (6-9.5); Monocyte (Absolute #) 0.51 (0.0-1.3); Platelet Count 237 K/mm3 (150-450); Red Blood Count 3.97 M/mm3 (4.1-5.4); White Blood Count 7.3 K/mm3 (4.0-10.5)
[2018-09-17 12:13] LABS: Mean Corpuscular Hemoglobin 33.7 pg (26-32)
[2018-09-17 12:14] LABS: Appearance CLEAR (CLEAR); Bilirubin NEGATIVE (NEGATIVE); Blood NEGATIVE Ery/ul (0-5); Epithelial Cells RARE /HPF (FEW); Glucose NEGATIVE (NEGATIVE); Ketones NEGATIVE (NEGATIVE); Leukocyte Esterase NEGATIVE (NEGATIVE); Mucus SLIGHT /HPF (NEGATIVE); Nitrite NEGATIVE (NEGATIVE); Protein,Urine Dip NEGATIVE (Negative); Specific Gravity 1.011 (1.005-1.025); Urobilinogen NEGATIVE mg/dL (0-1)
[2018-09-17 12:20] LABS: ALBUMIN 4.2 g/dL (3.5-5.0); ALKALINE PHOSPHATASE 52 U/L (38-126); AMYLASE < 30 U/L (30-110); ANION GAP 11.3 MEQ/L (5-15); BLOOD UREA NITROGEN 17 mg/dL (7-17); CHLORIDE 108 mmol/L (98-107); Calcium 9.9 mg/dL (8.4-10.2); Carbon Dioxide 25 mmol/L (22-30); Creatinine 1 0.62 mg/dL (0.52-1.04); Glucose 95 mg/dL (74-106); LIPASE 37 U/L (23-300); Potassium 4.1 mmol/L (3.5-5.1); SGOT/AST 22 U/L (14-36); SGPT/ALT 16 U/L (0-35); SODIUM 140 mmol/L (137-145)
[2018-09-17] MEDS ORDERED: TORAdol 30 mg Injection IV ONE (12:54)
[2018-09-17] MEDS ORDERED: TORAdol 30 mg Injection ONE (13:02)
--- NOTE | 2018-09-17 13:30 | XRAY ---
Indication: Abdomen pain. Multiple contiguous axial images obtained through the abdomen and pelvis using 80 cc Isovue 370 contrast only. Comparison: November 11, 2017. Lung bases are clear. Heart is not enlarged. Noncontrasted stomach and bowel loops appear nonobstructed. Normal appendix. No free fluid/air. Remaining liver, gallbladder, pancreas, spleen, adrenal glands, kidneys, ureters, bladder, uterus, and aorta appear unremarkable. No pathologic retroperitoneal lymphadenopathy. Osseous structures intact. No ventral or inguinal hernias. Impression: CT abdomen/pelvis with contrast exam is again negative. CT DI 9.69
--- NOTE | 2018-09-17 13:58 | ERPHSYRPT ---
- History of Present Illness Historian: patient Exam Limitations: no limitations Patient Subjective Stated Complaint: pt here for lower abd pain for months now, states pain is off and on, she states it is quick stabbing pain. some nausea. no vomiting, no fever Triage Nursing Assessment: pt alert, walked in, resp easy, skin w/d/p. abd soft and flat, no edema Physician History: Pt is a 33 y/o female with chronic abdominal pain. She presented to the ED today with complains of abdominal pain that feels like stabbing. Pt denies SOB or cough, but states, every movement, cough or sneeze causing her severe abdominal pain. The pain is worse today, so she came to the ED. Timing/Duration: week(s), intermittent Activities at Onset: none Quality: stabbing Abdominal Pain Onset Location: generalized abdomen Pain Radiation: no radiation Severity of Pain-Max: moderate Severity of Pain-Current: moderate Modifying Factors: Improves With: nothing Previous symptoms: same symptoms as today Allergies/Adverse Reactions: No Known Drug Allergies Allergy (Verified 09/17/18 11:38) Home Medications: No Reportable Medications [No Reported Medications] 09/17/18 [History] Hx Tetanus, Diphtheria Vaccination/Date Given: No Hx Influenza Vaccination/Date Given: Yes Hx Pneumococcal Vaccination/Date Given: No Immunizations Up to Date: Yes - Review of Systems Constitutional: Malaise Eyes: No Symptoms Ears, Nose, & Throat: No Symptoms Respiratory: No Cough, No Dyspnea Cardiac: No Chest Pain, No Edema, No Syncope Abdominal/Gastrointestinal: Abdominal Pain, Nausea Genitourinary Symptoms: No Dysuria Musculoskeletal: No Back Pain, No Neck Pain Neurological: No Dizziness, No Focal Weakness, No Sensory Changes - Past Medical History Pertinent Past Medical History: Yes Neurological History: No Pertinent History ENT History: No Pertinent History Cardiac History: No Pertinent History Respiratory History: COPD Endocrine Medical History: No Pertinent History Musculoskeletal History: Fractures GI Medical History: No Pertinent History History: Other Psycho-Social History: Anxiety, Depression, Other Female Reproductive Disorders: Cervical Cancer Other Medical History: Orthopedics fractures. pt had a hysterectomy d/t cervical cancer when she was 27 . ptsd - Past Surgical History Past Surgical History: Yes Neuro Surgical History: No Pertinent History Cardiac: No Pertinent History Respiratory: No Pertinent History Gastrointestinal: Exploratory Laparoscopy Genitourinary: No Pertinent History Musculoskeletal: Orthopedic Surgery Female Surgical History: Hysterectomy, Dilation & Curettage, Section, Lumpectomy Other Surgical History: D&C, DIAGNOSTIC LAPROSCOPIC, LUMPECTOMY LEFT BREAST, 3 LYMPHNODES REMOVED FROM LEFT ARMPIT, UPPER/LOWER SCOPE. - Social History Smoking Status: Current every day smoker How long have you smoked: 20 years Exposure to second hand smoke: Yes Alcohol Use: Socially Drug Use: none Patient Lives Alone: No Significant Family History: no pertinent family hx - Female History Hx Last Menstrual Period: hyster Hx Now: No - Nursing Vital Signs Nursing Vital Signs: Initial Vital Signs Temperature 97 F 09/17/18 11:33 Pulse Rate 82 09/17/18 11:33 Respiratory Rate 16 09/17/18 11:33 Blood Pressure 122/81 09/17/18 11:33 O2 Sat by Pulse Oximetry 99 09/17/18 11:33 Pain Scale Pain Intensity 7 - Physical Exam General Appearance: no apparent distress, alert Eye Exam: PERRL/EOMI, eyes nml inspection Ears, Nose, Throat Exam: normal ENT inspection, pharynx normal, moist mucous membranes Neck Exam: normal inspection, non-tender, supple, full range of motion Respiratory Exam: normal breath sounds, lungs clear, No respiratory distress Cardiovascular Exam: regular rate/rhythm, normal heart sounds Gastrointestinal/Abdomen Exam: soft, normal bowel sounds, tenderness (diffuse) Back Exam: normal inspection, normal range of motion, No CVA tenderness, No vertebral tenderness Extremity Exam: normal inspection, normal range of motion, pelvis stable Neurologic Exam: alert, oriented x 3, cooperative, normal mood/affect, nml cerebellar function, sensation nml, No motor deficits SpO2: 99 - Course Nursing assessment & vital signs reviewed: Yes - CT Exams Abdomen/Pelvis CT Interpretation: Negative (CT abdomen and pelvis with contrast is negative) Ordered Tests: Active Orders 24 hr Category Date Time Status ABDOMEN AND PELVIS W CONTRAST [CT] Stat Exams 09/17/18 12:44 Completed AMYLASE Stat Lab 09/17/18 12:00 Completed CBC W DIFF Stat Lab 09/17/18 12:00 Completed CMP Stat Lab 09/17/18 12:00 Completed LIPASE Stat Lab 09/17/18 12:00 Completed Lactic Acid Stat Lab 09/17/18 11:49 Completed UA W/RFX UR CULTURE Stat Lab 09/17/18 12:00 Completed Medication Summary Discontinued Medications Generic Name Dose Route Start Last Admin Trade Name Florina PRN Reason Stop Dose Admin Sodium Chloride 1,000 mls @ 999 mls/hr 09/17/18 11:49 09/17/18 13:05 Sodium Chloride 0.9% 1000 Ml IV 09/17/18 12:49 Infused .Q1H1M STA Infusion Sodium Chloride Confirm 09/17/18 11:57 Sodium Chloride 0.9% 1000 Ml Administered 09/17/18 11:58 Dose 1,000 mls @ ud .ROUTE .STK-MED ONE Ketorolac Tromethamine 30 mg 09/17/18 12:54 09/17/18 13:03 Toradol 30 Mg Injection IV 09/17/18 12:55 30 mg STAT ONE Administration Ketorolac Tromethamine Confirm 09/17/18 13:02 Toradol 30 Mg Injection Administered 09/17/18 13:03 Dose 30 mg .ROUTE .STK-MED ONE Lab/Rad Data: Laboratory Result Diagrams 09/17/18 12:00 09/17/18 12:00 Laboratory Results 09/17/18 09/17/18 09/17/18 Range/Units 12:00 12:00 12:00 WBC 7.3 (4.0-10.5) K/mm3 RBC 3.97 L (4.1-5.4) M/mm3 Hgb 13.4 (12.0-16.0) gm/dl Hct 39.8 (35-47) % MCV 100.3 H (78-100) fl MCH 33.7 H (26-32) pg MCHC 33.7 (32-36) g/dl RDW 13.0 (11.5-14.0) % Plt Count 237 (150-450) K/mm3 MPV 9.6 H (6-9.5) fl Gran % 58.3 (36.0-66.0) % Eos # (Auto) 0.11 (0-0.5) Absolute Lymphs (auto) 2.41 (1.0-4.6) Absolute Monos (auto) 0.51 (0.0-1.3) Lymphocytes % 32.9 (24.0-44.0) % Monocytes % 7.0 (0.0-12.0) % Eosinophils % 1.5 (0.00-5.0) % Basophils % 0.3 (0.0-0.4) % Absolute Granulocytes 4.27 (1.4-6.9) Basophils # 0.02 (0-0.4) Sodium 140 (137-145) mmol/L Potassium 4.1 (3.5-5.1) mmol/L Chloride 108 H (98-107) mmol/L Carbon Dioxide 25 (22-30) mmol/L Anion Gap 11.3 (5-15) MEQ/L BUN 17 (7-17) mg/dL Creatinine 0.62 (0.52-1.04) mg/dL Estimated GFR > 60.0 ML/MIN Glucose 95 (74-106) mg/dL Lactic Acid (0.4-2.0) Calcium 9.9 (8.4-10.2) mg/dL Total Bilirubin 0.20 (0.2-1.3) mg/dL AST 22 (14-36) U/L ALT 16 (0-35) U/L Alkaline Phosphatase 52 (38-126) U/L Serum Total Protein 7.0 (6.3-8.2) g/dL Albumin 4.2 (3.5-5.0) g/dL Amylase < 30 L (30-110) U/L Lipase 37 (23-300) U/L Urine Color YELLOW (YELLOW) Urine Appearance CLEAR (CLEAR) Urine pH 6.0 (5-6) Ur Specific [place] 1.011 (1.005-1.025) Urine Protein NEGATIVE (Negative) Urine Ketones NEGATIVE (NEGATIVE) Urine Blood NEGATIVE (0-5) [place]/ul Urine Nitrite NEGATIVE (NEGATIVE) Urine Bilirubin NEGATIVE (NEGATIVE) Urine Urobilinogen NEGATIVE (0-1) mg/dL Ur Leukocyte Esterase NEGATIVE (NEGATIVE) Urine WBC (Auto) NONE (0-5) /HPF Urine RBC (Auto) NONE (0-2) /HPF U Epithel Cells (Auto) RARE (FEW) /HPF Urine Bacteria (Auto) NONE (NEGATIVE) /HPF Urine Mucus (Auto) SLIGHT (NEGATIVE) /HPF Urine Culture Reflexed NO (NO) Urine Glucose NEGATIVE (NEGATIVE) mg/dL 09/17/18 Range/Units 11:49 WBC (4.0-10.5) K/mm3 RBC (4.1-5.4) M/mm3 Hgb (12.0-16.0) gm/dl Hct (35-47) % MCV (78-100) fl MCH (26-32) pg MCHC (32-36) g/dl RDW (11.5-14.0) % Plt Count (150-450) K/mm3 MPV (6-9.5) fl Gran % (36.0-66.0) % Eos # (Auto) (0-0.5) Absolute Lymphs (auto) (1.0-4.6) Absolute Monos (auto) (0.0-1.3) Lymphocytes % (24.0-44.0) % Monocytes % (0.0-12.0) % Eosinophils % (0.00-5.0) % Basophils % (0.0-0.4) % Absolute Granulocytes (1.4-6.9) Basophils # (0-0.4) Sodium (137-145) mmol/L Potassium (3.5-5.1) mmol/L Chloride (98-107) mmol/L Carbon Dioxide (22-30) mmol/L Anion Gap (5-15) MEQ/L BUN (7-17) mg/dL Creatinine (0.52-1.04) mg/dL Estimated GFR ML/MIN Glucose (74-106) mg/dL Lactic Acid 0.7 (0.4-2.0) Calcium (8.4-10.2) mg/dL Total Bilirubin (0.2-1.3) mg/dL AST (14-36) U/L ALT (0-35) U/L Alkaline Phosphatase (38-126) U/L Serum Total Protein (6.3-8.2) g/dL Albumin (3.5-5.0) g/dL Amylase (30-110) U/L Lipase (23-300) U/L Urine Color (YELLOW) Urine Appearance (CLEAR) Urine pH (5-6) Ur Specific [place] (1.005-1.025) Urine Protein (Negative) Urine Ketones (NEGATIVE) Urine Blood (0-5) [place]/ul Urine Nitrite (NEGATIVE) Urine Bilirubin (NEGATIVE) Urine Urobilinogen (0-1) mg/dL Ur Leukocyte Esterase (NEGATIVE) Urine WBC (Auto) (0-5) /HPF Urine RBC (Auto) (0-2) /HPF U Epithel Cells (Auto) (FEW) /HPF Urine Bacteria (Auto) (NEGATIVE) /HPF Urine Mucus (Auto) (NEGATIVE) /HPF Urine Culture Reflexed (NO) Urine Glucose (NEGATIVE) mg/dL - Progress Progress: unchanged Progress Note: 09/17/18 13:58 Pt was seen and evaluated. All lab work were normal, including UA. CT of abdomen and pelvis was ordered, and it is negative as well. I advised the pt to be seen by GI for a scop or any other work u[p that can diagnose the pt and give her some relief. Discussed with : Adrian Will see patient in: office Counseled pt/family regarding: need for follow-up - Departure Departure Disposition: Home Clinical Impression: Abdominal pain Condition: Stable Critical Care Time: No Referrals: FRANCK CANDELARIA [Primary Care Provider] - Additional Instructions: F/U with PCP and see GI if needed.
[2018-09-17 14:13] VITALS: BP 104/62; PULSE 86
== END 2018-09-17 14:13 | disposition home or self-care (01) ==
LOC: ED 11:22
DX: R10.30 Lower abdominal pain, unspecified (principal)
CPT/HCPCS: 36000; 36415; 74177; 80053; 81001; 82150; 83605; 83690; 85025; 96360; 96374; 99284; J1885

== ENCOUNTER 2019-10-27 17:21 | Emergency (ER) | payer MEDICAID ==
--- NOTE | 2019-10-27 18:17 | ERPHSYRPT ---
- History of Present Illness Time Seen by Provider: 10/27/19 17:31 Source: patient Exam Limitations: no limitations Patient Subjective Stated Complaint: finger swelling/pain Triage Nursing Assessment: pt to ED c/o right hand first finger swelling and pain. rates 6/10. limited ROM, states too painful to do, "kind of tingly." noted swelling to finger, cap refil < 3 to site. states finger was getting tender 3-4 days ago but has gotten more swollen and pain has increased. Physician History: This a 34-year-old patient presenting to the ED for evaluation of right forefinger swelling and redness for the past 3 to 4 days Denies fever The pain at 6/10, pain, increases with using the finger, no relieving factors, non radiating. denies trauma/ use of meds/prior infections uses marijuana on daily basis Timing/Duration: day(s) (3-4) Quality: painful Severity: moderate Location: hands Possible Causes: no cause identified Modifying Factors: Improves With: scratching Associated Symptoms: denies symptoms Allergies/Adverse Reactions: No Known Drug Allergies Allergy (Verified 09/17/18 11:38) Home Medications: Dextroamphetamine/Amphetamine [Adderall 20 mg Tablet] 20 mg PO DAILY 10/27/19 [History] Ibuprofen 800 mg PO Q6-8HPRN PRN 10/27/19 [History] Mirtazapine 30 mg [Remeron 30 mg] 30 mg PO DAILY 10/27/19 [History] Hx Tetanus, Diphtheria Vaccination/Date Given: Yes Hx Influenza Vaccination/Date Given: Yes Hx Pneumococcal Vaccination/Date Given: No Travel Risk - International Travel Have you traveled outside of the country in past 3 weeks: No - Coronavirus Screening Are you exhibiting any of the following symptoms?: No Close contact with a COVID-19 positive Pt in past 14-21 Days: No - Review of Systems Constitutional: No Symptoms Eyes: No Symptoms Ears, Nose, & Throat: No Symptoms Respiratory: No Symptoms Cardiac: No Symptoms Abdominal/Gastrointestinal: No Symptoms Genitourinary Symptoms: No Symptoms Musculoskeletal: No Symptoms Skin: Other (swelling of forefinger) Neurological: No Symptoms Psychological: No Symptoms Endocrine: No Symptoms All Other Systems: Reviewed and Negative - Past Medical History Pertinent Past Medical History: Yes Neurological History: No Pertinent History ENT History: No Pertinent History Cardiac History: No Pertinent History Respiratory History: COPD Endocrine Medical History: No Pertinent History Musculoskeletal History: Fractures GI Medical History: No Pertinent History History: Other Psycho-Social History: Anxiety, Depression, Other Female Reproductive Disorders: Cervical Cancer Other Medical History: Orthopedics fractures. pt had a hysterectomy d/t cervical cancer when she was 27 . ptsd - Past Surgical History Past Surgical History: Yes Neuro Surgical History: No Pertinent History Cardiac: No Pertinent History Respiratory: No Pertinent History Gastrointestinal: Exploratory Laparoscopy Genitourinary: No Pertinent History Musculoskeletal: Orthopedic Surgery Female Surgical History: Hysterectomy, Dilation & Curettage, Section, Lumpectomy Other Surgical History: D&C, DIAGNOSTIC LAPROSCOPIC, LUMPECTOMY LEFT BREAST, 3 LYMPHNODES REMOVED FROM LEFT ARMPIT, UPPER/LOWER SCOPE. - Social History Smoking Status: Current every day smoker How long have you smoked: 20 years Exposure to second hand smoke: Yes Alcohol Use: Socially Drug Use: marijuana Patient Lives Alone: No Significant Family History: no pertinent family hx - Female History Hx Now: No (hysterectomy 2013) - Nursing Vital Signs Nursing Vital Signs: Initial Vital Signs Temperature 98.3 F 10/27/19 17:29 Pulse Rate 87 10/27/19 17:29 Respiratory Rate 15 10/27/19 17:29 Blood Pressure 125/75 10/27/19 17:29 O2 Sat by Pulse Oximetry 100 10/27/19 17:29 Pain Scale Pain Intensity 6 - Physical Exam General Appearance: no apparent distress Eye Exam: PERRL/EOMI, eyes nml inspection, No scleral icterus Ears, Nose, Throat Exam: normal ENT inspection, TMs normal, pharynx normal Neck Exam: normal inspection, non-tender, supple, full range of motion Respiratory Exam: normal breath sounds, lungs clear, No respiratory distress Cardiovascular Exam: regular rate/rhythm, normal heart sounds, normal peripheral pulses Gastrointestinal/Abdomen Exam: soft, ecchymosis Back Exam: normal inspection Extremity Exam: normal inspection Neurologic Exam: alert, oriented x 3, cooperative (right forefinger- painful erythema and swelling of proximl and lateral nail fold. No evidence of abscess) Lymphatic Exam: No adenopathy SpO2 Interpretation: normal SpO2: 100 O2 Delivery: Room Air - Progress Progress Note: 10/27/19 18:17 This is a 34-year-old patient presenting to the ED for evaluation of acute right forefinger paronychia Seen and evaluated in ED room 5 Vital signs stable on arrival We will place patient on oral cephalexin, patient to soak her fingers in warm water for at least 10 to 15 minutes 3 times a day and follow-up with primary care physician in the morning. - Departure Departure Disposition: Home (in stable condition) Clinical Impression: Acute paronychia of finger of right hand Condition: Stable Critical Care Time: No Referrals: FRANCK CANDELARIA [Primary Care Provider] - Instructions: Paronychia Additional Instructions: Discharge/Care Plan LADI HUMMEL was seen on 10/27/19 in the Emergency Room. The patient was counseled regarding Diagnosis,Lab results, Imaging studies, need for follow up and when to return to the Emergency Room. Prescriptions given: Discharge Note I have spoken with the patient and/or caregivers. I have explained the patient's condition, diagnosis and treatment plan based on the information available to me at this time. I have answered the patient's and/or caregiver's questions and addressed any concerns. The patient and/or caregivers have as good understanding of the patient's diagnosis, condition and treatment plan as can be expected at this point. The vital signs have been stable. The patient's condition is stable and appropriate for discharge from the emergency department. The patient will pursue further outpatient evaluation with the primary care physician or other designated or consulting physician as outlined in the discharge instructions. The patient and/or caregivers are agreeable to this plan of care and follow-up instructions have been explained in detail. The patient and/or caregivers have received these instruction. The patient/and or caregivers are aware that any significant change in condition or worsening of symptoms should prompt an immediate return to this or the closest emergency department or call 911. Prescriptions: Cephalexin [Keflex] 500 mg PO TID 7 Days #21 capsule
[2019-10-27 18:25] VITALS: BP 118/59; PULSE 82; O2SAT 98
== END 2019-10-27 18:32 | disposition home or self-care (01) ==
LOC: ED 17:21
DX: L03.011 Cellulitis of right finger (principal)
CPT/HCPCS: 99283

== ENCOUNTER 2022-02-16 08:37 | Emergency (ER) | payer MEDICAID ==
[2022-02-16] MEDS ORDERED: TYLENOL 325 MG PO ONE (09:05)
[2022-02-16] MEDS ORDERED: BENADRYL 50 MG/ML IV ONE (09:05)
[2022-02-16] MEDS ORDERED: TORAdol 30 mg Injection IV ONE (09:05)
[2022-02-16] MEDS ORDERED: Sodium Chloride 0.9% 1000 ML 1,000 ML IV STA (09:05)
[2022-02-16] MEDS ORDERED: TYLENOL 325 MG ONE (09:10)
[2022-02-16] MEDS ORDERED: TORAdol 30 mg Injection ONE (09:10)
[2022-02-16] MEDS ORDERED: Sodium Chloride 0.9% 1000 ML 1,000 ML ONE (09:10)
[2022-02-16] MEDS ORDERED: BENADRYL 50 MG/ML ONE (09:10)
--- NOTE | 2022-02-16 09:14 | ERPHSYRPT ---
- History of Present Illness Time Seen by Provider: 02/16/22 08:38 Source: patient Exam Limitations: no limitations Patient Subjective Stated Complaint: Pt states that she got a headache early in the evening yesterday and it progressively got worse and then she became weak on her left side and stated that she thinks she blacked out for a few seconds and she said that she became real tingly and had numbness in her lower left arm, pt states that she has a torn rotator cuff in the left shoulder for the past couple of years so that adds to her pain, pt states that the headache is just on her left side and in her neck, pt states that she is still weak on her left side Triage Nursing Assessment: Pt brought to the ER by her boyfriend, love reza, rates head pain as 7/10, unable to walk without assistance due to numbness and weakness in left leg, states that her muscles are "achy", no difficulty breathing, last intake yesterday, pulses normal, skin n/w/d Physician History: Patient here with a headache. Left-sided. Some associated numbness and tingling. NIH stroke scale is 0 on my exam. No other falls or trauma. Patient does state that she has a history of migraines. But has not seen a physician in over a year. She describes no fever, chills, signs or symptoms of meningitis. Patient's boyfriend brought her here today. States that she has a history of a hysterectomy. Timing/Duration: today Quality: aching Head Pain Location: frontal Severity of Pain-Max: mild Severity of Pain-Current: mild Recent Head Trauma: no recent headache/trauma Modifying Factors: Improves With: noise, other Allergies/Adverse Reactions: No Known Drug Allergies Allergy (Verified 02/16/22 08:50) Home Medications: No Reportable Medications [No Reported Medications] 02/16/22 [History] Hx Tetanus, Diphtheria Vaccination/Date Given: Yes Hx Influenza Vaccination/Date Given: Yes Hx Pneumococcal Vaccination/Date Given: No Travel Risk - International Travel Have you traveled outside of the country in past 3 weeks: No - Coronavirus Screening Are you exhibiting any of the following symptoms?: Yes Symptoms: Headaches/Body Aches/Fatigue Close contact with a COVID-19 positive Pt in past 14-21 Days: No - Vaccine Status Have you recieved a Covid-19 vaccination: No - Review of Systems Constitutional: No Fever, No Chills Eyes: No Symptoms Ears, Nose, & Throat: No Symptoms Respiratory: No Cough, No Dyspnea Cardiac: No Chest Pain, No Edema, No Syncope Abdominal/Gastrointestinal: No Abdominal Pain, No Nausea, No Vomiting, No Diarrhea Genitourinary Symptoms: No Dysuria Musculoskeletal: No Back Pain, No Neck Pain Skin: No Rash Neurological: Headache, No Dizziness, No Focal Weakness, No Sensory Changes Psychological: No Symptoms Endocrine: No Symptoms All Other Systems: Reviewed and Negative - Past Medical History Pertinent Past Medical History: Yes Neurological History: No Pertinent History ENT History: No Pertinent History Cardiac History: No Pertinent History Respiratory History: COPD Endocrine Medical History: No Pertinent History Musculoskeletal History: Fractures GI Medical History: No Pertinent History History: Other Psycho-Social History: Anxiety, Depression, Other Female Reproductive Disorders: Cervical Cancer Other Medical History: Orthopedics fractures. pt had a hysterectomy d/t cervical cancer when she was 27 . ptsd - Past Surgical History Past Surgical History: Yes Neuro Surgical History: No Pertinent History Cardiac: No Pertinent History Respiratory: No Pertinent History Gastrointestinal: Exploratory Laparoscopy Genitourinary: No Pertinent History Musculoskeletal: Orthopedic Surgery Female Surgical History: Hysterectomy, Dilation & Curettage, Section, Lumpectomy Other Surgical History: D&C, DIAGNOSTIC LAPROSCOPIC, LUMPECTOMY LEFT BREAST, 3 LYMPHNODES REMOVED FROM LEFT ARMPIT, UPPER/LOWER SCOPE. - Social History Smoking Status: Current every day smoker How long have you smoked: 20 years Exposure to second hand smoke: Yes Alcohol Use: Socially Drug Use: marijuana Patient Lives Alone: No Significant Family History: no pertinent family hx - Female History Hx Now: No (hysterectomy) - Nursing Vital Signs Nursing Vital Signs: Initial Vital Signs Temperature 98.6 F 02/16/22 08:38 Pulse Rate 88 02/16/22 08:38 Respiratory Rate 14 02/16/22 08:38 Blood Pressure 124/70 02/16/22 08:38 O2 Sat by Pulse Oximetry 98 02/16/22 08:38 Pain Scale Pain Intensity 6 - Physical Exam General Appearance: no apparent distress Eye Exam: PERRL/EOMI Ears, Nose, Throat Exam: normal ENT inspection, moist mucous membranes Neck Exam: normal inspection, supple, full range of motion, No meningismus Respiratory Exam: normal breath sounds, lungs clear Cardiovascular Exam: regular rate/rhythm, normal heart sounds Gastrointestinal/Abdominal Exam: soft, No tenderness, No distention Back Exam: normal inspection, normal range of motion Mental Status Exam: alert, oriented x 3, 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 Uvula is midline, no swelling of the mouth, noraml oropharynx. No exudate, no signs of meningitis, no floor of mouth swelling, no hot potato voice on exam. No buccal swelling, no gum bleeding, no signs of tooth abscess/infection. - Course Nursing assessment & vital signs reviewed: Yes Ordered Tests: Active Orders 24 hr Category Date Time Status IV Insertion STAT Care 02/16/22 09:05 Active HEAD WITHOUT CONTRAST [CT] Stat Exams 02/16/22 09:05 Completed CBC W DIFF Stat Lab 02/16/22 09:12 Completed CMP Stat Lab 02/16/22 09:12 Completed Medication Summary Discontinued Medications Generic Name Dose Route Start Last Admin Trade Name Florina PRN Reason Stop Dose Admin Acetaminophen 975 mg 02/16/22 09:05 02/16/22 09:11 Acetaminophen 325 Mg Tablet PO 02/16/22 09:06 975 mg STAT ONE Administration Acetaminophen Confirm 02/16/22 09:10 Acetaminophen 325 Mg Tablet Administered 02/16/22 09:11 Dose 975 mg .ROUTE .STK-MED ONE Diphenhydramine HCl 25 mg 02/16/22 09:05 02/16/22 09:17 Diphenhydramine Hcl 50 Mg/Ml Vial IV 02/16/22 09:06 25 mg STAT ONE Administration Diphenhydramine HCl Confirm 02/16/22 09:10 Diphenhydramine Hcl 50 Mg/Ml Vial Administered 02/16/22 09:11 Dose 50 mg .ROUTE .STK-MED ONE Droperidol 1.25 mg 02/16/22 09:05 02/16/22 09:46 Droperidol 5 Mg/2 Ml Vial IV 02/16/22 09:06 1.25 mg STAT ONE Administration Droperidol Confirm 02/16/22 09:10 Droperidol 5 Mg/2 Ml Vial Administered 02/16/22 09:11 Dose 5 mg .ROUTE .STK-MED ONE Sodium Chloride 1,000 mls @ 999 mls/hr 02/16/22 09:05 02/16/22 09:45 Sodium Chloride 0.9% 1000 Ml IV 02/16/22 10:05 999 mls/hr .Q1H1M STA Administration Sodium Chloride Confirm 02/16/22 09:10 Sodium Chloride 0.9% 1000 Ml Administered 02/16/22 09:11 Dose 1,000 mls @ ud .ROUTE .STK-MED ONE Ketorolac Tromethamine 30 mg 02/16/22 09:05 02/16/22 09:16 Ketorolac Tromethamine 30 Mg/Ml Inj IV 02/16/22 09:06 30 mg STAT ONE Administration Ketorolac Tromethamine Confirm 02/16/22 09:10 Ketorolac Tromethamine 30 Mg/Ml Inj Administered 02/16/22 09:11 Dose 30 mg .ROUTE .STK-MED ONE Lab/Rad Data: Laboratory Result Diagrams 02/16/22 09:12 02/16/22 09:12 Laboratory Results 02/16/22 02/16/22 Range/Units 09:12 09:12 WBC 4.9 (4.0-10.5) x10^3/uL RBC 3.94 L (4.1-5.4) x10^6/uL Hgb 13.2 (12.0-16.0) g/dL Hct 39.6 (35-47) % MCV 100.5 H (78-100) fL MCH 33.5 H (26-32) pg MCHC 33.3 (32-36) g/dL RDW 12.9 (11.5-14.0) % Plt Count 266 (150-450) x10^3/uL MPV 9.8 (7.5-11.0) fL Gran % 80.1 H (36.0-66.0) % Immature Gran % (Auto) 0.4 (0.00-0.4) % Nucleat RBC Rel Count 0.0 (0.00-0.1) % Eos # (Auto) 0.03 (0-0.5) x10^3/uL Immature Gran # (Auto) 0.02 (0.00-0.03) x10^3u/L Absolute Lymphs (auto) 0.38 L (1.0-4.6) x10^3/uL Absolute Monos (auto) 0.54 (0.0-1.3) x10^3/uL Absolute Nucleated RBC 0.00 (0.00-0.01) x10^3u/L Lymphocytes % 7.7 L (24.0-44.0) % Monocytes % 11.0 (0.0-12.0) % Eosinophils % 0.6 (0.00-5.0) % Basophils % 0.2 (0.0-0.4) % Absolute Granulocytes 3.95 (1.4-6.9) x10^3/uL Basophils # 0.01 (0-0.4) x10^3/uL Sodium 138 (137-145) mmol/L Potassium 3.8 (3.5-5.1) mmol/L Chloride 108 H (98-107) mmol/L Carbon Dioxide 24 (22-30) mmol/L Anion Gap 9.0 (5-15) MEQ/L BUN 14 (7-17) mg/dL Creatinine 0.50 L (0.52-1.04) mg/dL Estimated GFR > 60.0 ML/MIN Glucose 83 (74-106) mg/dL Calcium 9.0 (8.4-10.2) mg/dL Total Bilirubin 0.40 (0.2-1.3) mg/dL AST 21 (14-36) U/L ALT 17 (0-35) U/L Alkaline Phosphatase 61 (38-126) U/L Serum Total Protein 7.1 (6.3-8.2) g/dL Albumin 4.5 (3.5-5.0) g/dL - Progress Progress: improved Air Movement: good Progress Note: 02/16/22 10:[address] We did [address] head CT, basic labs, fluids, migraine cocktail. Patient observed in the emergency department. Patient looks much improved here. No other abnormalities found. Headache completely resolved with migraine cocktail. Patient does have a follow-up appointment at 2 PM with PCP. Plan for discharge to primary care's office. Patient may return here at any point in time. I did repeat an NIH exam on the patient. Remained negative. Blood Culture(s) Obtained: No Antibiotics given: No Counseled pt/family regarding: lab results, diagnosis - Departure Departure Disposition: Home Clinical Impression: Headache Condition: Stable Critical Care Time: No Referrals: FRANCK CANDELARIA [Primary Care Provider] - Follow up/PCP as directed Instructions: Headache, Adult (DC)
[2022-02-16 09:24] LABS: Eosinophil % 0.6 % (0.00-5.0); Eosinophil (Absolute #) 0.03 x10^3/uL (0-0.5); Hemoglobin 13.2 g/dL (12.0-16.0); Platelet Count 266 x10^3/uL (150-450); White Blood Count 4.9 x10^3/uL (4.0-10.5)
[2022-02-16 09:31] LABS: ALBUMIN 4.5 g/dL (3.5-5.0); ALKALINE PHOSPHATASE 61 U/L (38-126); BLOOD UREA NITROGEN 14 mg/dL (7-17); CHLORIDE 108 mmol/L (98-107); Carbon Dioxide 24 mmol/L (22-30); EST GLOMERULAR FILTRATION RATE > 60.0 ML/MIN; Glucose 83 mg/dL (74-106); Potassium 3.8 mmol/L (3.5-5.1); SGOT/AST 21 U/L (14-36); SGPT/ALT 17 U/L (0-35); SODIUM 138 mmol/L (137-145); Total Protein 7.1 g/dL (6.3-8.2)
--- NOTE | 2022-02-16 09:43 | XRAY ---
Indication: Headache, dizziness, and left-sided weakness. Multiple contiguous axial images obtained through the head without contrast. Comparison: August 23, 2016. Normal appearing brain parenchyma, ventricles, and bony calvarium. Visualized paranasal sinuses and mastoid air cells are clear. Impression: Continued normal CT head without contrast exam.
[2022-02-16 10:08] LABS: Absolute Neutrophil Ct (ANC) 3.95 x10^3/uL (1.4-6.9); Basophil (Absolute #) 0.01 x10^3/uL (0-0.4); Hematocrit 39.6 % (35-47); Lymphocyte (Absolute #) 0.38 x10^3/uL (1.0-4.6); Lymphocytes % 7.7 % (24.0-44.0); Mean Cell Volume 100.5 fL (78-100); Mean Corpuscular Hemoglobin 33.5 pg (26-32); Mean Corpuscular Hgb Concent. 33.3 g/dL (32-36); Mean Platelet Volume 9.8 fL (7.5-11.0); Monocyte (Absolute #) 0.54 x10^3/uL (0.0-1.3); Neutrophil % 80.1 % (36.0-66.0); Red Blood Count 3.94 x10^6/uL (4.1-5.4); Red Cell Distribution Width 12.9 % (11.5-14.0)
[2022-02-16 10:41] VITALS: O2SAT 99
[2022-02-16 11:15] VITALS: BP 112/63; PULSE 88
[2022-02-16 12:35] LABS: Slide Review 1 YES
== END 2022-02-16 11:16 | disposition home or self-care (01) ==
LOC: ED 08:37
DX: R51.9 Headache, unspecified (principal); R20.2 Paresthesia of skin; J44.9 Chronic obstructive pulmonary disease, unspecified; Z72.0 Tobacco use; Z28.310 Unvaccinated for COVID-19
CPT/HCPCS: 36000; 36415; 70450; 80053; 85025; 96360; 96374; 96375; 99284; J1200; J1885; A9270-GY

== ENCOUNTER 2023-12-26 21:25 | Emergency (ER) | payer OTHER ==
[2023-12-26 21:41] VITALS: TEMP 98
--- NOTE | 2023-12-26 21:47 | ERPHSYRPT ---
- History of Present Illness Time Seen by Provider: 12/26/23 21:32 Historian: patient Exam Limitations: no limitations Physician History: Pt states about 15 minutes ago she started with 10/10 achy mid chest pain and 6/10 chest tightness; chest pain is gone now but chest tightness persists. Pt states she has had shortness of air for the past 15 minutes; denies abdominal pain, nausea, vomiting, fever. Aspirin Treatment Today: 81 mg x 4, provided by EMS Allergies/Adverse Reactions: No Known Drug Allergies Allergy (Verified 12/26/23 21:30) Home Medications: Albuterol Sulfate [Albuterol Sulfate Hfa] 2 puffs IH Q6H PRN PRN 12/26/23 [History] Bupropion HCl Xl 150 mg [Wellbutrin XL 150 MG] 1 tab PO DAILY 12/26/23 [History] Montelukast Sodium 10 mg [Singulair 10 MG] 10 mg PO DAILY 12/26/23 [History] Varenicline Tartrate 1 tab PO BID 12/26/23 [History] Hx Tetanus, Diphtheria Vaccination/Date Given: Yes Hx Influenza Vaccination/Date Given: Yes Hx Pneumococcal Vaccination/Date Given: No - Review of Systems Constitutional: No Fever Respiratory: Dyspnea Cardiac: Chest Pain Abdominal/Gastrointestinal: No Abdominal Pain, No Nausea, No Vomiting - Past Medical History Pertinent Past Medical History: Yes Neurological History: No Pertinent History ENT History: No Pertinent History Cardiac History: No Pertinent History Respiratory History: COPD Endocrine Medical History: No Pertinent History Musculoskeletal History: Fractures GI Medical History: No Pertinent History History: Other Psycho-Social History: Anxiety, Depression, Other Female Reproductive Disorders: Cervical Cancer Other Medical History: Orthopedics fractures. pt had a hysterectomy d/t cervical cancer when she was 27 . ptsd - Past Surgical History Past Surgical History: Yes Neuro Surgical History: No Pertinent History Cardiac: No Pertinent History Respiratory: No Pertinent History Gastrointestinal: Exploratory Laparoscopy Genitourinary: No Pertinent History Musculoskeletal: Orthopedic Surgery Female Surgical History: Hysterectomy, Dilation & Curettage, Section, Lumpectomy Other Surgical History: D&C, DIAGNOSTIC LAPROSCOPIC, LUMPECTOMY LEFT BREAST, 3 LYMPHNODES REMOVED FROM LEFT ARMPIT, UPPER/LOWER SCOPE. Significant Family History: no pertinent family hx - Female History Hx Last Menstrual Period: 1 WEEK AGO - Social History Smoking Status: Current every day smoker How long have you smoked: 20 years Exposure to second hand smoke: Yes Alcohol Use: Socially Drug Use: marijuana Patient Lives Alone: No - Nursing Vital Signs Nursing Vital Signs: Initial Vital Signs Pulse Rate 80 12/26/23 21:30 Respiratory Rate 15 12/26/23 21:30 Blood Pressure 106/72 12/26/23 21:30 O2 Sat by Pulse Oximetry 100 12/26/23 21:30 Pain Scale Pain Intensity 2 - Physical Exam General Appearance: alert Eye Exam: PERRL/EOMI Ears, Nose, Throat Exam: TMs normal, pharyngeal erythema Neck Exam: normal inspection Respiratory Exam: lungs clear Cardiovascular Exam: normal heart sounds Gastrointestinal/Abdomen Exam: normal bowel sounds Extremity Exam: No pedal edema Neurologic Exam: alert, cooperative Skin Exam: warm, dry - Course EKG Interpreted by Me: RATE (86), Sinus Rhythm, NORMAL AXIS, Other (QTc = 435) - CT Exams Chest CT Interpretation: Tele-radiologist Report (Mild paraseptal emphysema/subpleural blebs is noted involving bilateral upper lobe, apical and posterior segments - same as prior study. No other acute interval changes is seen. No obvious pulmonary embolism.) Ordered Tests: Active Orders 24 hr Category Date Time Status EKG-ER Only STAT Care 12/26/23 21:44 Active IV Insertion STAT Care 12/26/23 21:44 Active CHEST WITH CONTRAST [CT] Stat Exams 12/26/23 22:15 Completed AMYLASE Stat Lab 12/26/23 21:30 Completed CBC W DIFF Stat Lab 12/26/23 21:30 Completed CMP Stat Lab 12/26/23 21:30 Completed D-DIMER QUANTITATIVE Stat Lab 12/26/23 21:30 Completed HCG QUALITATIVE, SERUM Stat Lab 12/26/23 21:30 Completed LIPASE Stat Lab 12/26/23 21:30 Completed MAGNESIUM Stat Lab 12/26/23 21:30 Completed TROPONIN Q4H Lab 12/26/23 21:30 Completed TROPONIN Q4H Lab 12/27/23 02:00 Ordered TROPONIN Q4H Lab 12/27/23 06:00 Ordered UA W/RFX UR CULTURE Stat Lab 12/26/23 22:48 Completed Urine Triage Profile Stat Lab 12/26/23 22:48 Completed Medication Summary Generic Name Dose Route Start Last Admin Trade Name Freq PRN Reason Stop Dose Admin Sodium Chloride 1,000 mls @ 100 mls/hr 12/26/23 21:45 12/26/23 22:39 Sodium Chloride 0.9% 1000 Ml IV 01/25/24 21:44 999 mls/hr .Q10H GAURANG Infusion Discontinued Medications Generic Name Dose Route Start Last Admin Trade Name Freq PRN Reason Stop Dose Admin Sodium Chloride 1,000 mls @ 999 mls/hr 12/26/23 22:14 12/26/23 22:38 Sodium Chloride 0.9% 1000 Ml IV 12/26/23 23:14 Not Given .Q1H1M STA Nitroglycerin 0.4 mg 12/26/23 22:47 12/26/23 22:52 Nitroglycerin 0.4 Mg (Ed) 0.4 Mg Tab.Subl SL 12/26/23 22:48 0.4 mg STAT ONE Administration Nitroglycerin Confirm 12/26/23 22:50 Nitroglycerin 0.4 Mg (Ed) 0.4 Mg Tab.Subl Administered 12/26/23 22:51 Dose 0.4 mg SL .STK-MED ONE Lab/Rad Data: Laboratory Result Diagrams 12/26/23 21:30 12/26/23 21:30 Laboratory Results 12/26/23 12/26/23 12/26/23 Range/Units 22:48 22:48 21:50 WBC (3.98-10.04) x10^3/uL RBC (3.93-5.22) x10^6/uL Hgb (11.2-15.7) g/dL Hct (34.1-44.9) % MCV (79.4-94.8) fL MCH (25.6-32.2) pg MCHC (32.2-35.5) g/dL RDW (11.7-14.4) % Plt Count (182-369) x10^3/uL MPV (9.4-12.3) fL Gran % (34.0-71.1) % Immature Gran % (Auto) (0.001-0.429) % Nucleat RBC Rel Count (0.00-0.2) % Eos # (Auto) (0.04-0.36) x10^3/uL Immature Gran # (Auto) (0.001-0.031) x10^3u/L Absolute Lymphs (auto) (1.18-3.74) x10^3/uL Absolute Monos (auto) (0.24-0.86) x10^3/uL Absolute Nucleated RBC (0.00-0.012) x10^3u/L Lymphocytes % (19.3-51.7) % Monocytes % (4.7-12.5) % Eosinophils % (0.7-5.8) % Basophils % (0.1-1.2) % Absolute Granulocytes (1.56-6.13) x10^3/uL Basophils # (0.01-0.08) x10^3/uL D-Dimer (0.0-0.50) mg/L Sodium (135-145) mmol/L Potassium (3.5-5.1) mmol/L Chloride (98-107) mmol/L Carbon Dioxide (22-30) mmol/L Anion Gap (5-15) MEQ/L BUN (7-17) mg/dL Creatinine (0.52-1.04) mg/dL Estimated GFR ML/MIN Glucose (74-106) mg/dL Calcium (8.4-10.2) mg/dL Magnesium (1.6-2.3) mg/dL Total Bilirubin (0.2-1.3) mg/dL AST (14-36) U/L ALT (0-35) U/L Alkaline Phosphatase (38-126) U/L Troponin I (0.000-0.033) ng/mL Serum Total Protein (6.3-8.2) g/dL Albumin (3.5-5.0) g/dL Amylase (30-110) U/L Lipase (23-300) U/L Serum HCG, Qual (NEGATIVE) Urine Color Yellow (Yellow) Urine Appearance Cloudy A (Clear) Urine pH 5.5 (4.6-8.0) Ur Specific [place] >=1.030 A (1.005-1.030) Urine Protein Negative (Negative) Urine Glucose (UA) Negative (Negative) mg/dL Urine Ketones Trace A (Negative) Urine Blood Negative (Negative) Urine Nitrite Negative (Negative) Urine Bilirubin Negative (Negative) Urine Urobilinogen 1.0 A (0.2) mg/dL Ur Leukocyte Esterase Negative (Negative) U Hyaline Cast (Auto) 3-5 A (0-2) /LPF Urine Microscopic RBC 0-2 (0-5) /HPF Urine Microscopic WBC 6-10 A (0-5) /HPF Ur Epithelial Cells Few (None Seen) /HPF Urine Bacteria Few A (None Seen) /HPF Urine Culture Reflexed NO (NO) Urine Opiates Level NEGATIVE (NEGATIVE) Ur Methadone NEGATIVE (NEGATIVE) Urine Barbiturates NEGATIVE (NEGATIVE) Ur Phencyclidine (PCP) NEGATIVE (NEGATIVE) Urine Amphetamine NEGATIVE (NEGATIVE) U Benzodiazepine Level NEGATIVE (NEGATIVE) Urine Cocaine NEGATIVE (NEGATIVE) Urine Marijuana (THC) POSITIVE A (NEGATIVE) Influenza Type A Ag NEGATIVE (NEGATIVE) Influenza Type B Ag NEGATIVE (NEGATIVE) RSV (PCR) NEGATIVE (NEGATIVE) SARS-CoV-2 (PCR) NEGATIVE (NEGATIVE) Group A Strep Antibody (NEGATIVE) 12/26/23 12/26/23 12/26/23 Range/Units 21:50 21:30 21:30 WBC (3.98-10.04) x10^3/uL RBC (3.93-5.22) x10^6/uL Hgb (11.2-15.7) g/dL Hct (34.1-44.9) % MCV (79.4-94.8) fL MCH (25.6-32.2) pg MCHC (32.2-35.5) g/dL RDW (11.7-14.4) % Plt Count (182-369) x10^3/uL MPV (9.4-12.3) fL Gran % (34.0-71.1) % Immature Gran % (Auto) (0.001-0.429) % Nucleat RBC Rel Count (0.00-0.2) % Eos # (Auto) (0.04-0.36) x10^3/uL Immature Gran # (Auto) (0.001-0.031) x10^3u/L Absolute Lymphs (auto) (1.18-3.74) x10^3/uL Absolute Monos (auto) (0.24-0.86) x10^3/uL Absolute Nucleated RBC (0.00-0.012) x10^3u/L Lymphocytes % (19.3-51.7) % Monocytes % (4.7-12.5) % Eosinophils % (0.7-5.8) % Basophils % (0.1-1.2) % Absolute Granulocytes (1.56-6.13) x10^3/uL Basophils # (0.01-0.08) x10^3/uL D-Dimer (0.0-0.50) mg/L Sodium (135-145) mmol/L Potassium (3.5-5.1) mmol/L Chloride (98-107) mmol/L Carbon Dioxide (22-30) mmol/L Anion Gap (5-15) MEQ/L BUN (7-17) mg/dL Creatinine (0.52-1.04) mg/dL Estimated GFR ML/MIN Glucose (74-106) mg/dL Calcium (8.4-10.2) mg/dL Magnesium (1.6-2.3) mg/dL Total Bilirubin (0.2-1.3) mg/dL AST (14-36) U/L ALT (0-35) U/L Alkaline Phosphatase (38-126) U/L Troponin I < 0.012 (0.000-0.033) ng/mL Serum Total Protein (6.3-8.2) g/dL Albumin (3.5-5.0) g/dL Amylase (30-110) U/L Lipase (23-300) U/L Serum HCG, Qual NEGATIVE (NEGATIVE) Urine Color (Yellow) Urine Appearance (Clear) Urine pH (4.6-8.0) Ur Specific [place] (1.005-1.030) Urine Protein (Negative) Urine Glucose (UA) (Negative) mg/dL Urine Ketones (Negative) Urine Blood (Negative) Urine Nitrite (Negative) Urine Bilirubin (Negative) Urine Urobilinogen (0.2) mg/dL Ur Leukocyte Esterase (Negative) U Hyaline Cast (Auto) (0-2) /LPF Urine Microscopic RBC (0-5) /HPF Urine Microscopic WBC (0-5) /HPF Ur Epithelial Cells (None Seen) /HPF Urine Bacteria (None Seen) /HPF Urine Culture Reflexed (NO) Urine Opiates Level (NEGATIVE) Ur Methadone (NEGATIVE) Urine Barbiturates (NEGATIVE) Ur Phencyclidine (PCP) (NEGATIVE) Urine Amphetamine (NEGATIVE) U Benzodiazepine Level (NEGATIVE) Urine Cocaine (NEGATIVE) Urine Marijuana (THC) (NEGATIVE) Influenza Type A Ag (NEGATIVE) Influenza Type B Ag (NEGATIVE) RSV (PCR) (NEGATIVE) SARS-CoV-2 (PCR) (NEGATIVE) Group A Strep Antibody NOT DETECTED (NEGATIVE) 12/26/23 12/26/23 12/26/23 Range/Units 21:30 21:30 21:30 WBC 8.5 (3.98-10.04) x10^3/uL RBC 3.91 L (3.93-5.22) x10^6/uL Hgb 12.8 (11.2-15.7) g/dL Hct 38.7 (34.1-44.9) % MCV 99.0 H (79.4-94.8) fL MCH 32.7 H (25.6-32.2) pg MCHC 33.1 (32.2-35.5) g/dL RDW 12.9 (11.7-14.4) % Plt Count 317 (182-369) x10^3/uL MPV 9.7 (9.4-12.3) fL Gran % 36.7 (34.0-71.1) % Immature Gran % (Auto) 0.2 (0.001-0.429) % Nucleat RBC Rel Count 0.0 (0.00-0.2) % Eos # (Auto) 0.09 (0.04-0.36) x10^3/uL Immature Gran # (Auto) 0.02 (0.001-0.031) x10^3u/L Absolute Lymphs (auto) 4.58 H (1.18-3.74) x10^3/uL Absolute Monos (auto) 0.66 (0.24-0.86) x10^3/uL Absolute Nucleated RBC 0.00 (0.00-0.012) x10^3u/L Lymphocytes % 53.8 H (19.3-51.7) % Monocytes % 7.8 (4.7-12.5) % Eosinophils % 1.1 (0.7-5.8) % Basophils % 0.4 (0.1-1.2) % Absolute Granulocytes 3.13 (1.56-6.13) x10^3/uL Basophils # 0.03 (0.01-0.08) x10^3/uL D-Dimer 0.61 H* (0.0-0.50) mg/L Sodium 139 (135-145) mmol/L Potassium 3.7 (3.5-5.1) mmol/L Chloride 105 (98-107) mmol/L Carbon Dioxide 27 (22-30) mmol/L Anion Gap 11.3 (5-15) MEQ/L BUN 19 H (7-17) mg/dL Creatinine 0.74 (0.52-1.04) mg/dL Estimated GFR 104.8 ML/MIN Glucose 103 (74-106) mg/dL Calcium 9.5 (8.4-10.2) mg/dL Magnesium 2.1 (1.6-2.3) mg/dL Total Bilirubin 0.50 (0.2-1.3) mg/dL AST 29 (14-36) U/L ALT 23 (0-35) U/L Alkaline Phosphatase 54 (38-126) U/L Troponin I (0.000-0.033) ng/mL Serum Total Protein 7.2 (6.3-8.2) g/dL Albumin 4.7 (3.5-5.0) g/dL Amylase 62 (30-110) U/L Lipase 42 (23-300) U/L Serum HCG, Qual (NEGATIVE) Urine Color (Yellow) Urine Appearance (Clear) Urine pH (4.6-8.0) Ur Specific [place] (1.005-1.030) Urine Protein (Negative) Urine Glucose (UA) (Negative) mg/dL Urine Ketones (Negative) Urine Blood (Negative) Urine Nitrite (Negative) Urine Bilirubin (Negative) Urine Urobilinogen (0.2) mg/dL Ur Leukocyte Esterase (Negative) U Hyaline Cast (Auto) (0-2) /LPF Urine Microscopic RBC (0-5) /HPF Urine Microscopic WBC (0-5) /HPF Ur Epithelial Cells (None Seen) /HPF Urine Bacteria (None Seen) /HPF Urine Culture Reflexed (NO) Urine Opiates Level (NEGATIVE) Ur Methadone (NEGATIVE) Urine Barbiturates (NEGATIVE) Ur Phencyclidine (PCP) (NEGATIVE) Urine Amphetamine (NEGATIVE) U Benzodiazepine Level (NEGATIVE) Urine Cocaine (NEGATIVE) Urine Marijuana (THC) (NEGATIVE) Influenza Type A Ag (NEGATIVE) Influenza Type B Ag (NEGATIVE) RSV (PCR) (NEGATIVE) SARS-CoV-2 (PCR) (NEGATIVE) Group A Strep Antibody (NEGATIVE) - Progress Progress: improved Counseled pt/family regarding: lab results, diagnosis, need for follow-up, rad results Medical Desision Making - Diagnostic Testing Diagnostic test were ordered, analyzed, and reviewed by me: Yes Radiological Interpretation: Teleradiologist Report - Departure Departure Disposition: Home Clinical Impression: Chest pain, Dyspnea, Pharyngitis Condition: Stable Critical Care Time: No Referrals: FRANCK CANDELARIA [Primary Care Provider] - Follow up/PCP as directed Instructions: Chest Pain (DC), Shortness of Breath, Adult ED Additional Instructions: Follow up with private doctor tomorrow. Forms: Work/School Release Form
[2023-12-26] MEDS ORDERED: Sodium Chloride 0.9% 1000 ML 1,000 ML ONE (21:48)
[2023-12-26] MEDS: Sodium Chloride 0.9% 1000 ML 1,000 ML IV SCH (21:49)
[2023-12-26 21:53] LABS: Absolute Neutrophil Ct (ANC) 3.13 x10^3/uL (1.56-6.13); BASOPHIL % 0.4 % (0.1-1.2); Basophil (Absolute #) 0.03 x10^3/uL (0.01-0.08); Eosinophil % 1.1 % (0.7-5.8); Eosinophil (Absolute #) 0.09 x10^3/uL (0.04-0.36); Hematocrit 38.7 % (34.1-44.9); Hemoglobin 12.8 g/dL (11.2-15.7); IMMATURE GRAN # 0.02 x10^3u/L (0.001-0.031); IMMATURE GRAN % 0.2 % (0.001-0.429); Lymphocyte (Absolute #) 4.58 x10^3/uL (1.18-3.74); Lymphocytes % 53.8 % (19.3-51.7); Mean Corpuscular Hemoglobin 32.7 pg (25.6-32.2); Mean Corpuscular Hgb Concent. 33.1 g/dL (32.2-35.5); Mean Platelet Volume 9.7 fL (9.4-12.3); Monocyte (Absolute #) 0.66 x10^3/uL (0.24-0.86); Monocytes % 7.8 % (4.7-12.5); Neutrophil % 36.7 % (34.0-71.1); Platelet Count 317 x10^3/uL (182-369); Red Blood Count 3.91 x10^6/uL (3.93-5.22); Red Cell Distribution Width 12.9 % (11.7-14.4); White Blood Count 8.5 x10^3/uL (3.98-10.04)
[2023-12-26 21:58] LABS: HCG SERUM TEST NEGATIVE (NEGATIVE)
[2023-12-26 22:01] LABS: ALBUMIN 4.7 g/dL (3.5-5.0); ANION GAP 11.3 MEQ/L (5-15); BILIRUBIN,TOTAL 0.5 mg/dL (0.2-1.3); Calcium 9.5 mg/dL (8.4-10.2); Creatinine 1 0.74 mg/dL (0.52-1.04); EST GLOMERULAR FILTRATION RATE 104.8 ML/MIN; MAGNESIUM 2.1 mg/dL (1.6-2.3); Potassium 3.7 mmol/L (3.5-5.1); Total Protein 7.2 g/dL (6.3-8.2)
[2023-12-26 22:33] LABS: INFLUENZA A NEGATIVE (NEGATIVE); INFLUENZA B NEGATIVE (NEGATIVE); RESPIRATORY SYNCTIAL VIRUS NEGATIVE (NEGATIVE); SARS-CoV-2 Xpert Express NEGATIVE (NEGATIVE)
[2023-12-26] MEDS: Sodium Chloride 0.9% 1000 ML 1,000 ML IV STA (22:38)
[2023-12-26] MEDS ORDERED: Nitrostat 0.4 MG (ED) SL ONE (22:50)
[2023-12-26] MEDS: Nitrostat 0.4 MG (ED) SL ONE (22:52)
[2023-12-26 22:55] LABS: Appearance Cloudy (Clear); Bilirubin Negative (Negative); Blood Negative (Negative); Glucose, Urine Negative (Negative); Ketones Trace (Negative); Leukocyte Esterase Negative (Negative); Nitrite Negative (Negative); Ph 5.5 (4.6-8.0); Protein,Urine Dip Negative (Negative); Specific Gravity >=1.030 (1.005-1.030)
[2023-12-26 23:00] LABS: Bacteria Few /HPF (None Seen); Epithelial Cells Few /HPF (None Seen); RBC 0-2 /HPF (0-5)
[2023-12-26 23:01] LABS: ADD URINE CULTURE? NO (NO)
[2023-12-26 23:04] VITALS: BP 117/60; PULSE 111; RESP 21; O2SAT 98
[2023-12-26 23:12] LABS: Amphetamine,Urine NEGATIVE (NEGATIVE); Barbiturate,Urine NEGATIVE (NEGATIVE); Benzodiazepine,Urine NEGATIVE (NEGATIVE); Cocaine,Urine NEGATIVE (NEGATIVE); Methadone,Urine NEGATIVE (NEGATIVE); Opiate,Urine NEGATIVE (NEGATIVE); PCP,Urine NEGATIVE (NEGATIVE); THC,Urine POSITIVE (NEGATIVE)
--- NOTE | 2023-12-26 23:15 | XRAY ---
CLINICAL HISTORY: CHEST PAIN; ELEVATED D-DIMER COMPARISON: 04/04/2023 10:22:12 PHYSICIAN INDUSTRIAL TECHNIQUE: Contiguous axial images were obtained from the neck base through the upper abdomen following intravenous administration of contrast material. If IV contrast material had not been administered, the likelihood of detecting abnormalities relevant to the patient's condition would have been substantially decreased. In addition, sagittal and coronal reconstructions were performed. CT scan was performed according to ALARA (as low as reasonable achievable). FINDINGS: Mild paraseptal emphysema / subpleural blebs is noted involving bilateral upper lobe, apical and posterior segments. The rest of lungs are clear, with no focal areas of consolidation. Stable calcified nodule in lower lobe of left lung. The central airways are patent. There are no pleural effusions. No pneumothorax is seen. No axillary, hilar, or mediastinal adenopathy is identified. The visualized thyroid is unremarkable. The heart, aorta, and pulmonary arteries are of normal size and configuration. No pericardial effusion is identified. Imaged portions of the upper abdomen are unremarkable. No aggressive appearing osseous lesions are identified. IMPRESSION: 1.Mild paraseptal emphysema /subpleural blebs is noted involving bilateral upper lobe, apical and posterior segments.- same as prior study. No other acute interval changes is seen. No obvious pulmonary embolism. Electronically Signed by: Nathaniel Saleh MD. (12/26/2023 23:11:12 EDT)
== END 2023-12-26 23:45 | disposition home or self-care (01) ==
LOC: ED 21:25
DX: R07.9 Chest pain, unspecified (principal); R06.00 Dyspnea, unspecified; J02.9 Acute pharyngitis, unspecified; Z79.899 Other long term (current) drug therapy; Z72.0 Tobacco use
CPT/HCPCS: 0241U; 36000; 36415; 71260; 80053; 80307; 81001; 82150; 83690; 83735; 84484; 84703; 85025; 85379; 87651; 93005; 99284; A9270-GY

== ENCOUNTER 2024-06-19 16:23 | Emergency (ER) | payer OTHER ==
--- NOTE | 2024-06-19 16:29 | ERPHSYRPT ---
- History of Present Illness Time Seen by Provider: 06/19/24 16:29 Historian: patient, family Exam Limitations: no limitations Physician History: This is a 39-year-old white female patient brought to the emergency department by private vehicle accompanied by her mother with a complaint of sudden onset of significant upper abdominal pain. Patient denies chest pain. Patient denies shortness of breath. She does not have nausea vomiting or diarrhea symptoms. Patient has had a cholecystectomy in the past. She is also had a hysterectomy. The patient was intermittent for the first 15 to 30 minutes but then became more constant. The pain onset was at approximately 4 PM. At 3 PM she was completely fine. Patient occasionally smokes marijuana and does smoke tobacco cigarettes daily. Timing/Duration: today Quality: aching Abdominal Pain Onset Location: RUQ, LUQ, epigastric Pain Radiation: no radiation Severity of Pain-Max: moderate Severity of Pain-Current: moderate Modifying Factors: Improves With: nothing Associated Symptoms: denies symptoms Previous symptoms: no prior history, no recent treatment Allergies/Adverse Reactions: No Known Drug Allergies Allergy (Verified 06/19/24 16:32) Home Medications: Albuterol Sulfate [Albuterol Sulfate Hfa] 2 puffs IH Q6H PRN PRN 12/26/23 [History] Bupropion HCl Xl 150 mg [Wellbutrin XL 150 MG] 1 tab PO DAILY 12/26/23 [History] Montelukast Sodium 10 mg [Singulair 10 MG] 10 mg PO DAILY 12/26/23 [History] Buspirone HCl 5 mg [Buspar 5 mg] 10 mg PO BID 06/19/24 [History] Fluticasone/Umeclidin/Vilanter [Trelegy Ellipta 100-62.5-25] 1 puff PO DAILY 06/19/24 [History] LORazepam [Ativan] 0.5 mg PO BID PRN 06/19/24 [History] Varenicline Tartrate 1 mg PO BID 06/19/24 [History] Hx Tetanus, Diphtheria Vaccination/Date Given: Yes Hx Influenza Vaccination/Date Given: Yes Hx Pneumococcal Vaccination/Date Given: No Travel Risk - International Travel Have you traveled outside of the country in past 3 weeks: No - Emerging Infectious Disease Are you exhibiting symptoms associated with any current EIDs: No - Review of Systems Constitutional: No Symptoms Eyes: No Symptoms Ears, Nose, & Throat: No Symptoms Respiratory: No Symptoms Cardiac: No Symptoms Abdominal/Gastrointestinal: Abdominal Pain (Upper abdominal pain) Genitourinary Symptoms: No Symptoms Musculoskeletal: No Symptoms Skin: No Symptoms Neurological: No Symptoms Psychological: No Symptoms Endocrine: No Symptoms Hematologic/Lymphatic: No Symptoms Immunological/Allergic: No Symptoms All Other Systems: Reviewed and Negative - Past Medical History Pertinent Past Medical History: Yes Neurological History: No Pertinent History ENT History: No Pertinent History Cardiac History: No Pertinent History Respiratory History: COPD Endocrine Medical History: No Pertinent History Musculoskeletal History: Fractures GI Medical History: No Pertinent History History: Other Psycho-Social History: Anxiety, Depression, Other Female Reproductive Disorders: Cervical Cancer Other Medical History: Orthopedics fractures. pt had a hysterectomy d/t cervical cancer when she was 27 . ptsd - Past Surgical History Past Surgical History: Yes Neuro Surgical History: No Pertinent History Cardiac: No Pertinent History Respiratory: No Pertinent History Gastrointestinal: Exploratory Laparoscopy Genitourinary: No Pertinent History Musculoskeletal: Orthopedic Surgery Female Surgical History: Hysterectomy, Dilation & Curettage, Section, Lumpectomy Other Surgical History: D&C, DIAGNOSTIC LAPROSCOPIC, LUMPECTOMY LEFT BREAST, 3 LYMPHNODES REMOVED FROM LEFT ARMPIT, UPPER/LOWER SCOPE. Significant Family History: no pertinent family hx - Female History Hx Last Menstrual Period: 1 WEEK AGO - Social History Smoking Status: Current every day smoker How long have you smoked: 20 years Exposure to second hand smoke: Yes Alcohol Use: Socially Drug Use: marijuana Patient Lives Alone: No - Social Determinants of Health Will the patient participate in the screening: Declined to provide - Nursing Vital Signs Nursing Vital Signs: Initial Vital Signs Pulse Rate 79 06/19/24 16:32 Respiratory Rate 13 06/19/24 16:32 Blood Pressure 138/81 06/19/24 16:32 O2 Sat by Pulse Oximetry 100 06/19/24 16:32 Pain Scale Pain Intensity 7 - Physical Exam General Appearance: no apparent distress, alert, anxiety, thin Eye Exam: PERRL/EOMI, eyes nml inspection Ears, Nose, Throat Exam: normal ENT inspection, moist mucous membranes Neck Exam: normal inspection, non-tender, supple, full range of motion Respiratory Exam: normal breath sounds, lungs clear, No chest tenderness, No respiratory distress Cardiovascular Exam: regular rate/rhythm, normal heart sounds, normal peripheral pulses Gastrointestinal/Abdomen Exam: soft, normal bowel sounds, tenderness (Bilateral upper quadrants and epigastrium), guarding (Bilateral upper quadrants and epigastrium to palpation), No pulsatile mass Pelvic Exam: not done Rectal Exam: not done Back Exam: normal inspection, normal range of motion, No CVA tenderness, No vertebral tenderness Extremity Exam: normal inspection, normal range of motion, pelvis stable Neurologic Exam: alert, oriented x 3, cooperative, assistant city attorney II-XII nml as tested, nml cerebellar function, nml station & gait, sensation nml Skin Exam: normal color, warm, dry Lymphatic Exam: No adenopathy SpO2 Interpretation: normal O2 Delivery: Room Air - Course Nursing assessment & vital signs reviewed: Yes Ordered Tests: Active Orders 24 hr Category Date Time Status IV Insertion STAT Care 06/19/24 16:52 Active ABDOMEN AND PELVIS W/0 CONTRAS [CT] Stat Exams 06/19/24 16:52 Taken AMYLASE Stat Lab 06/19/24 17:04 Completed CBC W DIFF Stat Lab 06/19/24 17:04 Completed CMP Stat Lab 06/19/24 17:04 Completed LIPASE Stat Lab 06/19/24 17:04 Completed UA W/RFX UR CULTURE Stat Lab 06/19/24 16:45 Completed Medication Summary Discontinued Medications Generic Name Dose Route Start Last Admin Trade Name Angeloq PRN Reason Stop Dose Admin Hydromorphone HCl 1 mg 06/19/24 18:09 06/19/24 18:16 Hydromorphone 1 Mg/1ml Inj IV 06/19/24 18:10 1 mg STAT ONE Administration Hydromorphone HCl Confirm 06/19/24 18:12 Hydromorphone 1 Mg/1ml Inj Administered 06/19/24 18:13 Dose 1 mg .ROUTE .STK-MED ONE Ondansetron HCl 4 mg 06/19/24 18:09 06/19/24 18:14 Ondansetron Hcl 4 Mg/2 Ml Vial IV 06/19/24 18:10 4 mg STAT ONE Administration Ondansetron HCl Confirm 06/19/24 18:12 Ondansetron Hcl 4 Mg/2 Ml Vial Administered 06/19/24 18:13 Dose 4 mg .ROUTE .STK-MED ONE Lab/Rad Data: Laboratory Result Diagrams 06/19/24 17:04 06/19/24 17:04 Laboratory Results 06/19/24 06/19/24 06/19/24 Range/Units 17:04 17:04 16:45 WBC 7.8 (3.98-10.04) x10^3/uL RBC 3.87 L (3.93-5.22) x10^6/uL Hgb 12.6 (11.2-15.7) g/dL Hct 37.0 (34.1-44.9) % MCV 95.6 H (79.4-94.8) fL MCH 32.6 H (25.6-32.2) pg MCHC 34.1 (32.2-35.5) g/dL RDW 12.8 (11.7-14.4) % Plt Count 273 (182-369) x10^3/uL MPV 9.7 (9.4-12.3) fL Gran % 51.4 (34.0-71.1) % Immature Gran % (Auto) 0.4 (0.001-0.429) % Nucleat RBC Rel Count 0.0 (0.00-0.2) % Eos # (Auto) 0.06 (0.04-0.36) x10^3/uL Immature Gran # (Auto) 0.03 (0.001-0.031) x10^3u/L Absolute Lymphs (auto) 3.06 (1.18-3.74) x10^3/uL Absolute Monos (auto) 0.59 (0.24-0.86) x10^3/uL Absolute Nucleated RBC 0.00 (0.00-0.012) x10^3u/L Lymphocytes % 39.4 (19.3-51.7) % Monocytes % 7.6 (4.7-12.5) % Eosinophils % 0.8 (0.7-5.8) % Basophils % 0.4 (0.1-1.2) % Absolute Granulocytes 3.99 (1.56-6.13) x10^3/uL Basophils # 0.03 (0.01-0.08) x10^3/uL Sodium 137 (135-145) mmol/L Potassium 4.1 (3.5-5.1) mmol/L Chloride 106 (98-107) mmol/L Carbon Dioxide 23 (22-30) mmol/L Anion Gap 13.0 (5-15) MEQ/L BUN 18 H (7-17) mg/dL Creatinine 0.63 (0.52-1.04) mg/dL Estimated GFR 114.2 ML/MIN Glucose 101 (74-106) mg/dL Calcium 9.6 (8.4-10.2) mg/dL Total Bilirubin 0.50 (0.2-1.3) mg/dL AST 28 (14-36) U/L ALT 18 (0-35) U/L Alkaline Phosphatase 54 (38-126) U/L Serum Total Protein 7.0 (6.3-8.2) g/dL Albumin 4.8 (3.5-5.0) g/dL Amylase 39 (30-110) U/L Lipase 52 (23-300) U/L Urine Color Yellow (Yellow) Urine Appearance Clear (Clear) Urine pH 6.5 (4.6-8.0) Ur Specific [place] 1.025 (1.005-1.030) Urine Protein Negative (Negative) Urine Glucose (UA) Negative (Negative) mg/dL Urine Ketones Trace A (Negative) Urine Blood Negative (Negative) Urine Nitrite Negative (Negative) Urine Bilirubin Negative (Negative) Urine Urobilinogen 1.0 A (0.2) mg/dL Ur Leukocyte Esterase Negative (Negative) U Hyaline Cast (Auto) NONE SEEN (0-2) /LPF Urine Microscopic RBC 0-2 (0-5) /HPF Urine Microscopic WBC 3-5 (0-5) /HPF Ur Epithelial Cells Few (None Seen) /HPF Urine Bacteria Moderate A (None Seen) /HPF Urine Culture Reflexed NO (NO) - Progress Progress: improved, pain not gone completely Progress Note: 06/19/24 17:07 My medical decision making and the assignment of moderate complexity to this patient's medical issue today is based on review of the patient's past medical history, review of the patient's medication list, reviewed patient drug allergy list, history present illness and physical findings on examination. The workup in this patient includes placement of intravenous line, CBC, CMP, amylase, lipase, urinalysis, CT scan of the abdomen pelvis without contrast. Differential diagnosis includes but is not limited to abdominal hernia, pancreatitis, acute appendicitis, bowel obstruction 06/19/24 18:[address] scan of the abdomen pelvis without contrast was interpreted by the radiologist and I reviewed the impression. The impression states compared to prior similar study dated 04/07/2023, there is a mild fecal stasis but less than before. There is no new/acute findings. 06/19/24 18:32 I interpreted the patient's laboratory data results. Based on the laboratory data results, there are no acute, emergent medical issues. Counseled pt/family regarding: lab results, diagnosis, need for follow-up, rad results Medical Desision Making - Independent Historian Additional History obtained from: Mother - Diagnostic Testing Diagnostic test were ordered, analyzed, and reviewed by me: Yes Radiological Interpretation: Reviewed by me, Teleradiologist Report - Risk of complications Low Risk: Low risk of morbidity from additional dx testing or treatment - Departure Departure Disposition: Home Clinical Impression: Constipation Condition: Stable Critical Care Time: No Referrals: FRANCK CANDELARIA [Primary Care Provider] - Follow up/PCP as directed Additional Instructions: Drink plenty of clear liquids. Avoid fatty greasy spicy foods. Use Tylenol and ibuprofen for pain control. Call your primary care provider on 06/20/2024, to make arrangements for follow-up appointment for further evaluation management. May use [id number] MiraLAX and/or milk of magnesia to help improve the constipation.
[2024-06-19 16:43] VITALS: TEMP 98.1
[2024-06-19 17:04] LABS: Absolute Neutrophil Ct (ANC) 3.99 x10^3/uL (1.56-6.13); BASOPHIL % 0.4 % (0.1-1.2); Basophil (Absolute #) 0.03 x10^3/uL (0.01-0.08); Eosinophil % 0.8 % (0.7-5.8); Eosinophil (Absolute #) 0.06 x10^3/uL (0.04-0.36); Hemoglobin 12.6 g/dL (11.2-15.7); IMMATURE GRAN # 0.03 x10^3u/L (0.001-0.031); IMMATURE GRAN % 0.4 % (0.001-0.429); Lymphocyte (Absolute #) 3.06 x10^3/uL (1.18-3.74); Lymphocytes % 39.4 % (19.3-51.7); Mean Cell Volume 95.6 fL (79.4-94.8); Mean Corpuscular Hemoglobin 32.6 pg (25.6-32.2); Mean Corpuscular Hgb Concent. 34.1 g/dL (32.2-35.5); Mean Platelet Volume 9.7 fL (9.4-12.3); Monocyte (Absolute #) 0.59 x10^3/uL (0.24-0.86); Monocytes % 7.6 % (4.7-12.5); Neutrophil % 51.4 % (34.0-71.1); Platelet Count 273 x10^3/uL (182-369); Red Blood Count 3.87 x10^6/uL (3.93-5.22); Red Cell Distribution Width 12.8 % (11.7-14.4); White Blood Count 7.8 x10^3/uL (3.98-10.04)
[2024-06-19 17:08] LABS: Appearance Clear (Clear); Bacteria Moderate /HPF (None Seen); Bilirubin Negative (Negative); Blood Negative (Negative); Epithelial Cells Few /HPF (None Seen); Glucose, Urine Negative (Negative); Hyaline Casts NONE SEEN /LPF (0-2); Ketones Trace (Negative); Leukocyte Esterase Negative (Negative); Nitrite Negative (Negative); Ph 6.5 (4.6-8.0); Protein,Urine Dip Negative (Negative); RBC 0-2 /HPF (0-5); Specific Gravity 1.025 (1.005-1.030)
[2024-06-19 17:17] LABS: ALBUMIN 4.8 g/dL (3.5-5.0); BILIRUBIN,TOTAL 0.5 mg/dL (0.2-1.3); Calcium 9.6 mg/dL (8.4-10.2); Creatinine 1 0.63 mg/dL (0.52-1.04); EST GLOMERULAR FILTRATION RATE 114.2 ML/MIN; Potassium 4.1 mmol/L (3.5-5.1)
[2024-06-19] MEDS ORDERED: Hydromorphone 1 mg/ml Injection ONE (18:12)
[2024-06-19] MEDS ORDERED: Zofran 4 MG/2 ML VIAL ONE (18:12)
[2024-06-19] MEDS: Zofran 4 MG/2 ML VIAL IV ONE (18:14)
[2024-06-19] MEDS: Hydromorphone 1 mg/ml Injection IV ONE (18:16)
[2024-06-19] MEDS ORDERED: MORPHINE SULFATE 4 MG INJ ONE (18:51)
[2024-06-19] MEDS: MORPHINE SULFATE 4 MG INJ IV ONE (18:53)
[2024-06-19] MEDS ORDERED: MAALOX ES 30 ML UNIT DOSE ONE (20:25)
[2024-06-19] MEDS ORDERED: XYLOCAINE VISCOUS 2% 15 ML CUP ONE (20:25)
[2024-06-19] MEDS: GI COCKTAIL 45 ML (Maalox/Lidocaine) PO ONE (20:26)
[2024-06-19 20:40] VITALS: RESP 12
[2024-06-19 21:04] VITALS: PULSE 67; O2SAT 95
[2024-06-19 21:48] VITALS: BP 110/49
--- NOTE | 2024-06-20 08:33 | XRAY ---
Indication: Chest pain. Elevated d-dimer. Multiple contiguous axial images obtained through the chest using 100 cc Isovue 370 contrast and PE protocol. Comparison: December 26, 2023 Good opacification pulmonary arteries to include the lobar and segmental branches. No pulmonary embolus. Heart not enlarged. Aorta is normal in course and caliber. Stable small left hilar calcified nodes. No pathologic mediastinal/hilar lymphadenopathy. Lungs clear again with mild diffuse pulmonary emphysema. Bony thorax intact. CT abdomen/pelvis reported separately. Impression: Continued negative pulmonary embolus. Stable pulmonary emphysema and incidental old granulomatous disease. No new/acute findings.
--- NOTE | 2024-06-20 08:35 | XRAY ---
Indication: Abdominal pain. Multiple contiguous axial images obtained through the abdomen and pelvis without contrast. Comparison: April 07, 2023 CT chest reported separately. Noncontrasted stomach and bowel loops appear nonobstructed. Normal appendix. Mild diffuse colonic fecal debris. Nonobstructing right renal punctate calculus not seen on previous contrasted exam. Again incidental cholecystectomy and tiny splenic calcified granulomas. No free fluid/air. Remaining liver, pancreas, spleen, adrenal glands, kidneys, ureters, bladder, uterus, and aorta are unremarkable for noncontrast exam. Osseous structures intact. No ventral or inguinal hernias. Impression: 1. Again mild diffuse fecal stasis and incidental old granulomatous disease. 2. Nonobstructing right renal punctate calculus. 3. Remaining CT abdomen/pelvis without contrast exam is negative.
== END 2024-06-19 21:53 | disposition home or self-care (01) ==
LOC: ED 16:23
DX: K59.00 Constipation, unspecified (principal); R07.9 Chest pain, unspecified; R10.10 Upper abdominal pain, unspecified; Z79.899 Other long term (current) drug therapy; Z72.0 Tobacco use
CPT/HCPCS: 36415; 71260; 74176; 80053; 81001; 82150; 83690; 83735; 84484; 85025; 85379; 96374; 96375; 99284; 99285; J1171; J2270; J2405; A9270-GY

== ENCOUNTER 2024-09-14 12:44 | Emergency (ER) | payer OTHER ==
--- NOTE | 2024-09-14 12:51 | ERPHSYRPT ---
- History of Present Illness Time Seen by Provider: 09/14/24 12:51 Physician History: This is a thin 39-year-old white female patient of Dr. Campbell who arrives by private vehicle accompanied by her significant other with a complaint of anterior right knee bruising and slight discomfort. It came on suddenly without injury. Patient has never had anything like this. It came on approximately 30 minutes prior to arrival. Patient has a history of asthma/COPD, anxiety and depression. Patient is a daily smoker of tobacco cigarettes and rarely uses marijuana. Patient has no bleeding or clotting disorders. Method of Injury: other (No injury) Occurred: just prior to arrival Quality: other (Mild discomfort. Not interfering with her activities of daily living) Severity of Pain-Max: mild Severity of Pain-Current: none Lower Extremities Pain: knee: right (Skin of the anterior right knee) Modifying Factors: Improves With: nothing Associated Symptoms: none Allergies/Adverse Reactions: No Known Drug Allergies Allergy (Verified 09/14/24 12:57) Home Medications: Albuterol Sulfate [Albuterol Sulfate Hfa] 2 puffs IH Q6H PRN PRN 12/26/23 [History] Bupropion HCl Xl 150 mg [Wellbutrin XL 150 MG] 1 tab PO DAILY 12/26/23 [History] Montelukast Sodium 10 mg [Singulair 10 MG] 10 mg PO DAILY 12/26/23 [History] Buspirone HCl 5 mg [Buspar 5 mg] 10 mg PO BID 06/19/24 [History] Fluticasone/Umeclidin/Vilanter [Trelegy Ellipta 100-62.5-25] 1 puff PO DAILY 06/19/24 [History] LORazepam [Ativan] 0.5 mg PO BID PRN 06/19/24 [History] Ibuprofen 800 mg PO TID PRN 09/14/24 [History] Hx Tetanus, Diphtheria Vaccination/Date Given: Yes Hx Influenza Vaccination/Date Given: Yes Hx Pneumococcal Vaccination/Date Given: No Travel Risk - International Travel Have you traveled outside of the country in past 3 weeks: No - Emerging Infectious Disease Are you exhibiting symptoms associated with any current EIDs: No Symptoms: Abdominal Pain - Review of Systems Constitutional: No Symptoms Eyes: No Symptoms Ears, Nose, & Throat: No Symptoms Respiratory: No Symptoms Cardiac: No Symptoms Abdominal/Gastrointestinal: No Symptoms Genitourinary Symptoms: No Symptoms Musculoskeletal: No Symptoms Skin: Other (Mild localized ecchymosis skin overlying patella of the right knee) Neurological: No Symptoms Psychological: No Symptoms Endocrine: No Symptoms Hematologic/Lymphatic: No Symptoms Immunological/Allergic: No Symptoms All Other Systems: Reviewed and Negative - Past Medical History Pertinent Past Medical History: Yes Neurological History: No Pertinent History ENT History: No Pertinent History Cardiac History: No Pertinent History Respiratory History: COPD Endocrine Medical History: No Pertinent History Musculoskeletal History: Fractures GI Medical History: No Pertinent History History: Other Psycho-Social History: Anxiety, Depression, Other Female Reproductive Disorders: Cervical Cancer Other Medical History: Orthopedics fractures. pt had a hysterectomy d/t cervical cancer when she was 27 . ptsd - Past Surgical History Past Surgical History: Yes Neuro Surgical History: No Pertinent History Cardiac: No Pertinent History Respiratory: No Pertinent History Gastrointestinal: Exploratory Laparoscopy Genitourinary: No Pertinent History Musculoskeletal: Orthopedic Surgery Female Surgical History: Hysterectomy, Dilation & Curettage, Section, Lumpectomy Other Surgical History: D&C, DIAGNOSTIC LAPROSCOPIC, LUMPECTOMY LEFT BREAST, 3 LYMPHNODES REMOVED FROM LEFT ARMPIT, UPPER/LOWER SCOPE. Significant Family History: no pertinent family hx - Female History Hx Last Menstrual Period: 1 WEEK AGO - Social History Smoking Status: Current every day smoker How long have you smoked: 20 years Exposure to second hand smoke: Yes Alcohol Use: Socially Drug Use: marijuana Patient Lives Alone: No - Social Determinants of Health Do you worry about a steady place to live?: No In the past 12 months,have you had to go without utilities?: No Transportation Issues: No Has anyone in your support network made you feel unsafe?: No Have you or anyone in your house had to go w/o enough food: No - Nursing Vital Signs Nursing Vital Signs: Initial Vital Signs Temperature 98.3 F 09/14/24 12:52 Pulse Rate 98 H 09/14/24 12:52 Respiratory Rate 19 09/14/24 12:52 Blood Pressure 148/91 09/14/24 12:52 O2 Sat by Pulse Oximetry 98 09/14/24 12:52 Pain Scale Pain Intensity 0 - Physical Exam General Appearance: no apparent distress, alert, anxiety, thin Eyes, Ears, Nose, Throat Exam: normal ENT inspection, moist mucous membranes, tonsillar exudate Neck Exam: normal inspection, non-tender, supple Cardiovascular/Respiratory Exam: chest non-tender, no respiratory distress Gastrointestinal/Abdominal Exam: non-tender Back Exam: normal inspection, normal range of motion, No CVA tenderness, No vertebral tenderness Hips Exam: bilateral: non-tender, normal inspection, normal range of motion, no evidence of injury Legs Exam: bilateral leg: non-tender, normal inspection, normal range of motion, no evidence of injury Knees Exam: right knee: swelling (With ecchymosis that is localized skin overlying patella), left knee: non-tender, normal inspection, no evidence of injury, bilateral knee: normal range of motion Ankle Exam: bilateral ankle: non-tender, normal inspection, normal range of motion, no evidence of injury Foot Exam: bilateral foot: non-tender, normal inspection, normal range of motion, no evidence of injury Neuro/Tendon Exam: normal sensation, normal motor functions, normal tendon functions, responds to pain, no evidence tendon injury Mental Status Exam: alert, oriented x 3, cooperative Skin Exam: normal color, warm, dry SpO2 Interpretation: normal O2 Delivery: Room Air - Course Nursing assessment & vital signs reviewed: Yes - Progress Progress: unchanged Progress Note: 09/14/24 13:19 My medical decision making and the assignment of low complexity to this patient' s medical issue today is based on review of the patient's past medical history, review the patient's medication list, reviewed patient drug allergy list, history present illness and physical findings on examination. The workup in this patient does not necessitate laboratory radiographic studies. Differential diagnosis includes but is not limited to cellulitis, ecchymosis, superficial thrombophlebitis Medical Desision Making - Independent Historian Additional History obtained from: Relative/friend - Diagnostic Testing Diagnostic test were ordered, analyzed, and reviewed by me: No - Risk of complications Minimal Risk: Minimal risk of morbidity - Departure Departure Disposition: Home Clinical Impression: Thrombophlebitis Condition: Stable Critical Care Time: No Referrals: FRANCK CAMPBELL [Primary Care Provider, [facility]] - Follow up/PCP as directed Additional Instructions: Alternate ice and heat to tender area for the next 72 hours, 3 times a day. Take ibuprofen 800 mg orally twice a day with food for the next 72 hours. Use the Yuri wrap for compression. Return to the emergency department if symptoms worsen or the area enlarges or follow-up with your primary care provider on 09/16/2024, by phone, to make an appointment for follow-up in the next 5 to 7 days.
[2024-09-14 12:57] VITALS: RESP 19; TEMP 98.3; O2SAT 98
[2024-09-14 13:13] VITALS: BP 115/76; PULSE 84
== END 2024-09-14 13:26 | disposition home or self-care (01) ==
LOC: ED 12:44
DX: I80.3 Phlebitis and thrombophlebitis of lower extremities, unspecified (principal); M25.561 Pain in right knee; Z79.899 Other long term (current) drug therapy; Z72.0 Tobacco use
CPT/HCPCS: 99281

== ENCOUNTER 2025-03-23 14:54 | Emergency (ER) | payer MEDICAID ==
--- NOTE | 2025-03-23 15:34 | ERPHSYRPT ---
- History of Present Illness Time Seen by Provider: 03/23/25 15:00 Source: patient Exam Limitations: no limitations Physician History: 39-year-old female presents to the emergency room with generalized symptoms complaint of lightheadedness chest discomfort and feeling off patient reports that symptoms started last night she reports she went to bed she woke up she stopped the symptoms denies any fevers denies any chills she has any urinary symptoms denies any shortness of breath denies any flank pain denies any abdominal discomfort denies any vomiting denies any nausea reports he has a history of anxiety she reports she has had no recent travel and no recent antibiotic use now in ED for further eval Timing/Duration: yesterday Severity: mild Associated Symptoms: No nausea, No cough, No headaches, No loss of appetite, No seizure, No weakness Allergies/Adverse Reactions: No Known Drug Allergies Allergy (Verified 03/23/25 15:57) Home Medications: Albuterol Sulfate [Albuterol Sulfate Hfa] 2 puffs IH Q6H PRN PRN 12/26/23 [History] Montelukast Sodium 10 mg [Singulair 10 MG] 10 mg PO DAILY 12/26/23 [History] Buspirone HCl 5 mg [Buspar 5 mg] 10 mg PO BID 06/19/24 [History] Fluticasone/Umeclidin/Vilanter [Trelegy Ellipta 100-62.5-25] 1 puff PO DAILY 06/19/24 [History] Ibuprofen 800 mg PO TID PRN 09/14/24 [History] Hx Tetanus, Diphtheria Vaccination/Date Given: Yes Hx Influenza Vaccination/Date Given: Yes Hx Pneumococcal Vaccination/Date Given: No Travel Risk - Emerging Infectious Disease Are you exhibiting symptoms associated with any current EIDs: No Symptoms: Abdominal Pain - Review of Systems Constitutional: No Fever, No Chills Eyes: No Symptoms Ears, Nose, & Throat: No Symptoms Respiratory: No Cough, No Dyspnea Cardiac: Chest Pain Abdominal/Gastrointestinal: No Abdominal Pain, No Nausea, No Vomiting, No Diarrhea Genitourinary Symptoms: No Dysuria Musculoskeletal: No Back Pain, No Neck Pain Skin: No Rash Neurological: Dizziness Psychological: Anxiety Endocrine: No Symptoms All Other Systems: Reviewed and Negative - Past Medical History Pertinent Past Medical History: Yes Neurological History: No Pertinent History ENT History: No Pertinent History Cardiac History: No Pertinent History Respiratory History: COPD Endocrine Medical History: No Pertinent History Musculoskeletal History: Fractures GI Medical History: No Pertinent History History: Other Psycho-Social History: Anxiety, Depression, Other Female Reproductive Disorders: Cervical Cancer Other Medical History: Orthopedics fractures. pt had a hysterectomy d/t cervical cancer when she was 27 . ptsd - Past Surgical History Past Surgical History: Yes Neuro Surgical History: No Pertinent History Cardiac: No Pertinent History Respiratory: No Pertinent History Gastrointestinal: Exploratory Laparoscopy Genitourinary: No Pertinent History Musculoskeletal: Orthopedic Surgery Female Surgical History: Hysterectomy, Dilation & Curettage, Section, Lumpectomy Other Surgical History: D&C, DIAGNOSTIC LAPROSCOPIC, LUMPECTOMY LEFT BREAST, 3 LYMPHNODES REMOVED FROM LEFT ARMPIT, UPPER/LOWER SCOPE. Significant Family History: no pertinent family hx - Female History Hx Last Menstrual Period: 1 WEEK AGO Hx Now: No - Social History Smoking Status: Current every day smoker How long have you smoked: 20 years Exposure to second hand smoke: Yes Alcohol Use: Socially Drug Use: marijuana Patient Lives Alone: No - Social Determinants of Health Do you worry about a steady place to live?: No In the past 12 months,have you had to go without utilities?: No Transportation Issues: No Has anyone in your support network made you feel unsafe?: No Have you or anyone in your house had to go w/o enough food: No - Nursing Vital Signs Nursing Vital Signs: Initial Vital Signs Temperature 99.2 F 03/23/25 15:17 Pulse Rate 81 03/23/25 15:17 Respiratory Rate 16 03/23/25 15:17 Blood Pressure 128/77 03/23/25 15:17 O2 Sat by Pulse Oximetry 98 03/23/25 15:17 Pain Scale Pain Intensity 0 - Physical Exam General Appearance: no apparent distress, alert Eye Exam: PERRL/EOMI, eyes nml inspection Ears, Nose, Throat Exam: normal ENT inspection, TMs normal, pharynx normal, moist mucous membranes Neck Exam: normal inspection, non-tender, supple, full range of motion Respiratory Exam: normal breath sounds, lungs clear, No respiratory distress Cardiovascular Exam: regular rate/rhythm, normal heart sounds, normal peripheral pulses Gastrointestinal/Abdomen Exam: soft, normal bowel sounds, No tenderness, No mass Back Exam: normal inspection, normal range of motion, No CVA tenderness, No vertebral tenderness Extremity Exam: normal inspection, normal range of motion, pelvis stable Neurologic Exam: alert, oriented x 3, cooperative, normal mood/affect, nml cerebellar function, nml station & gait, sensation nml, No motor deficits Skin Exam: normal color, warm, dry, No rash Lymphatic Exam: No adenopathy - Course Nursing assessment & vital signs reviewed: Yes EKG Interpreted by Me: RATE (66), Sinus Rhythm, Non-specific ST Changes, Other (no STEMI) Ordered Tests: Active Orders 24 hr Category Date Time Status Dry Box Operator STAT Care 03/23/25 15:31 Active EKG-ER Only STAT Care 03/23/25 15:30 Completed IV Insertion STAT Care 03/23/25 15:30 Active Pulse Oximetry (ED) STAT Care 03/23/25 15:30 Active CHEST 1 VIEW (PORTABLE) Stat Exams 03/23/25 15:30 Taken HEAD WITHOUT CONTRAST [CT] Stat Exams 03/23/25 15:31 Completed CBC W DIFF Stat Lab 03/23/25 15:35 Completed CMP Stat Lab 03/23/25 15:35 Completed D-DIMER QUANTITATIVE Stat Lab 03/23/25 15:35 Completed ETHYL ALCOHOL Stat Lab 03/23/25 15:35 Completed Lactic Acid Stat Lab 03/23/25 15:31 Completed MAGNESIUM Stat Lab 03/23/25 15:35 Completed Manual Differential NC Stat Lab 03/23/25 15:35 Completed POCT GLUCOSE Stat Lab 03/23/25 15:28 Completed TROPONIN Stat Lab 03/23/25 15:35 Completed UA W/RFX UR CULTURE Stat Lab 03/23/25 15:35 Completed Urine Triage Profile Stat Lab 03/23/25 15:35 Completed Medication Summary Discontinued Medications Generic Name Dose Route Start Last Admin Trade Name Freq PRN Reason Stop Dose Admin Sodium Chloride 1,000 mls @ 999 mls/hr 03/23/25 15:30 03/23/25 15:50 Sodium Chloride 0.9% 1000 Ml IV 03/23/25 16:30 999 mls/hr .Q1H1M STA Administration Sodium Chloride Confirm 03/23/25 15:41 Sodium Chloride 0.9% 1000 Ml Administered 03/23/25 15:42 Dose 1,000 mls @ ud .ROUTE .STK-MED ONE Lorazepam 1 mg 03/23/25 15:31 03/23/25 15:45 Lorazepam 2 Mg/1 Ml 2 Mg Vial IV 03/23/25 15:32 1 mg STAT ONE Administration Lorazepam Confirm 03/23/25 15:41 Lorazepam 2 Mg/1 Ml 2 Mg Vial Administered 03/23/25 15:42 Dose 2 mg .ROUTE .STK-MED ONE Lab/Rad Data: Laboratory Result Diagrams 03/23/25 15:35 03/23/25 15:35 Laboratory Results 03/23/25 03/23/25 03/23/25 Range/Units 15:35 15:35 15:35 WBC (3.98-10.04) x10^3/uL RBC (3.93-5.22) x10^6/uL Hgb (11.2-15.7) g/dL Hct (34.1-44.9) % MCV (79.4-94.8) fL MCH (25.6-32.2) pg MCHC (32.2-35.5) g/dL RDW (11.7-14.4) % Plt Count (182-369) x10^3/uL MPV (9.4-12.3) fL D-Dimer 0.37 (0.0-0.50) mg/L Sodium (135-145) mmol/L Potassium (3.5-5.1) mmol/L Chloride (98-107) mmol/L Carbon Dioxide (22-30) mmol/L Anion Gap (5-15) MEQ/L BUN (7-17) mg/dL Creatinine (0.52-1.04) mg/dL Estimated GFR ML/MIN Glucose (74-106) mg/dL POC Glucometer (74 to 106) mg/dL Lactic Acid (0.4-2.0) Calcium (8.4-10.2) mg/dL Magnesium 2.1 (1.6-2.3) mg/dL Total Bilirubin (0.2-1.3) mg/dL AST (14-36) U/L ALT (0-35) U/L Alkaline Phosphatase (38-126) U/L Troponin I (0.000-0.033) ng/mL Serum Total Protein (6.3-8.2) g/dL Albumin (3.5-5.0) g/dL Urine Color Yellow (Yellow) Urine Appearance Cloudy A (Clear) Urine pH 8.0 (4.6-8.0) Ur Specific [place] 1.010 (1.005-1.030) Urine Protein Negative (Negative) Urine Glucose (UA) Negative (Negative) mg/dL Urine Ketones Negative (Negative) Urine Blood Negative (Negative) Urine Nitrite Negative (Negative) Urine Bilirubin Negative (Negative) Urine Urobilinogen 0.2 (0.2) mg/dL Ur Leukocyte Esterase Negative (Negative) U Hyaline Cast (Auto) NONE SEEN (0-2) /LPF Urine Microscopic RBC 0-2 (0-5) /HPF Urine Microscopic WBC 0-2 (0-5) /HPF Ur Epithelial Cells None Seen (None Seen) /HPF Urine Bacteria None Seen (None Seen) /HPF Urine Culture Reflexed NO (NO) Urine Opiates Level (NEGATIVE) Ur Methadone (NEGATIVE) Urine Barbiturates (NEGATIVE) Ur Phencyclidine (PCP) (NEGATIVE) Urine Amphetamine (NEGATIVE) U Benzodiazepine Level (NEGATIVE) Urine Cocaine (NEGATIVE) Urine Marijuana (THC) (NEGATIVE) Ethyl Alcohol < 10 (0-10) mg/dL 03/23/25 03/23/25 03/23/25 Range/Units 15:35 15:35 15:35 WBC 9.1 (3.98-10.04) x10^3/uL RBC 4.27 (3.93-5.22) x10^6/uL Hgb 13.9 (11.2-15.7) g/dL Hct 42.0 (34.1-44.9) % MCV 98.4 H (79.4-94.8) fL MCH 32.6 H (25.6-32.2) pg MCHC 33.1 (32.2-35.5) g/dL RDW 12.8 (11.7-14.4) % Plt Count 307 (182-369) x10^3/uL MPV 10.2 (9.4-12.3) fL D-Dimer (0.0-0.50) mg/L Sodium 137 (135-145) mmol/L Potassium 4.3 (3.5-5.1) mmol/L Chloride 103 (98-107) mmol/L Carbon Dioxide 26 (22-30) mmol/L Anion Gap 11.2 (5-15) MEQ/L BUN 15 (7-17) mg/dL Creatinine 0.72 (0.52-1.04) mg/dL Estimated GFR 107.7 ML/MIN Glucose 94 (74-106) mg/dL POC Glucometer (74 to 106) mg/dL Lactic Acid (0.4-2.0) Calcium 9.3 (8.4-10.2) mg/dL Magnesium (1.6-2.3) mg/dL Total Bilirubin 0.50 (0.2-1.3) mg/dL AST 28 (14-36) U/L ALT 15 (0-35) U/L Alkaline Phosphatase 66 (38-126) U/L Troponin I < 0.012 (0.000-0.033) ng/mL Serum Total Protein 7.9 (6.3-8.2) g/dL Albumin 5.0 (3.5-5.0) g/dL Urine Color (Yellow) Urine Appearance (Clear) Urine pH (4.6-8.0) Ur Specific [place] (1.005-1.030) Urine Protein (Negative) Urine Glucose (UA) (Negative) mg/dL Urine Ketones (Negative) Urine Blood (Negative) Urine Nitrite (Negative) Urine Bilirubin (Negative) Urine Urobilinogen (0.2) mg/dL Ur Leukocyte Esterase (Negative) U Hyaline Cast (Auto) (0-2) /LPF Urine Microscopic RBC (0-5) /HPF Urine Microscopic WBC (0-5) /HPF Ur Epithelial Cells (None Seen) /HPF Urine Bacteria (None Seen) /HPF Urine Culture Reflexed (NO) Urine Opiates Level NEGATIVE (NEGATIVE) Ur Methadone NEGATIVE (NEGATIVE) Urine Barbiturates NEGATIVE (NEGATIVE) Ur Phencyclidine (PCP) NEGATIVE (NEGATIVE) Urine Amphetamine NEGATIVE (NEGATIVE) U Benzodiazepine Level NEGATIVE (NEGATIVE) Urine Cocaine NEGATIVE (NEGATIVE) Urine Marijuana (THC) POSITIVE A (NEGATIVE) Ethyl Alcohol (0-10) mg/dL 03/23/25 03/23/25 Range/Units 15:31 15:28 WBC (3.98-10.04) x10^3/uL RBC (3.93-5.22) x10^6/uL Hgb (11.2-15.7) g/dL Hct (34.1-44.9) % MCV (79.4-94.8) fL MCH (25.6-32.2) pg MCHC (32.2-35.5) g/dL RDW (11.7-14.4) % Plt Count (182-369) x10^3/uL MPV (9.4-12.3) fL D-Dimer (0.0-0.50) mg/L Sodium (135-145) mmol/L Potassium (3.5-5.1) mmol/L Chloride (98-107) mmol/L Carbon Dioxide (22-30) mmol/L Anion Gap (5-15) MEQ/L BUN (7-17) mg/dL Creatinine (0.52-1.04) mg/dL Estimated GFR ML/MIN Glucose (74-106) mg/dL POC Glucometer 93 (74 to 106) mg/dL Lactic Acid 1.3 (0.4-2.0) Calcium (8.4-10.2) mg/dL Magnesium (1.6-2.3) mg/dL Total Bilirubin (0.2-1.3) mg/dL AST (14-36) U/L ALT (0-35) U/L Alkaline Phosphatase (38-126) U/L Troponin I (0.000-0.033) ng/mL Serum Total Protein (6.3-8.2) g/dL Albumin (3.5-5.0) g/dL Urine Color (Yellow) Urine Appearance (Clear) Urine pH (4.6-8.0) Ur Specific [place] (1.005-1.030) Urine Protein (Negative) Urine Glucose (UA) (Negative) mg/dL Urine Ketones (Negative) Urine Blood (Negative) Urine Nitrite (Negative) Urine Bilirubin (Negative) Urine Urobilinogen (0.2) mg/dL Ur Leukocyte Esterase (Negative) U Hyaline Cast (Auto) (0-2) /LPF Urine Microscopic RBC (0-5) /HPF Urine Microscopic WBC (0-5) /HPF Ur Epithelial Cells (None Seen) /HPF Urine Bacteria (None Seen) /HPF Urine Culture Reflexed (NO) Urine Opiates Level (NEGATIVE) Ur Methadone (NEGATIVE) Urine Barbiturates (NEGATIVE) Ur Phencyclidine (PCP) (NEGATIVE) Urine Amphetamine (NEGATIVE) U Benzodiazepine Level (NEGATIVE) Urine Cocaine (NEGATIVE) Urine Marijuana (THC) (NEGATIVE) Ethyl Alcohol (0-10) mg/dL - Progress Progress Note: 03/23/25 16:43 Normal skull morphology. IMPRESSION: 1. Normal CT of the head without contrast. 2. No interval changes. 03/23/25 16:48 Patient feels improved requesting be discharged x-ray shows no acute disease process CT head shows no interval changes patient's labs are unremarkable patient be discharged this time 03/23/25 16:48 patient did have thc positive ua - Departure Departure Disposition: Home Clinical Impression: Light headed, Anxiety Condition: Stable Critical Care Time: No Referrals: FRANCK CANDELARIA [Primary Care Provider, [facility]] - Follow up/PCP as directed NABILA CORBETT MD [ACTIVE STAFF, [facility]] - Follow up/PCP as directed Instructions: Generalized anxiety disorder, Stress
[2025-03-23 15:35] VITALS: TEMP 99.2
[2025-03-23] MEDS ORDERED: Ativan 2 MG/1 ML VIAL ONE (15:41)
[2025-03-23] MEDS: Ativan 2 MG/1 ML VIAL IV ONE (15:45)
[2025-03-23 15:50] LABS: Hematocrit 42.0 % (34.1-44.9); Hemoglobin 13.9 g/dL (11.2-15.7); Mean Corpuscular Hemoglobin 32.6 pg (25.6-32.2); Mean Corpuscular Hgb Concent. 33.1 g/dL (32.2-35.5); Platelet Count 307 x10^3/uL (182-369); Red Blood Count 4.27 x10^6/uL (3.93-5.22); White Blood Count 9.1 x10^3/uL (3.98-10.04)
[2025-03-23 16:07] LABS: Glucose, Urine Negative (Negative); Protein,Urine Dip Negative (Negative); RBC 0-2 /HPF (0-5); WBC 0-2 /HPF (0-5)
[2025-03-23 16:10] LABS: ETHYL ALCOHOL < 10 mg/dL (0-10)
[2025-03-23 16:21] LABS: Calcium 9.3 mg/dL (8.4-10.2); Carbon Dioxide 26 mmol/L (22-30); Creatinine 1 0.72 mg/dL (0.52-1.04); EST GLOMERULAR FILTRATION RATE 107.7 ML/MIN; Glucose 94 mg/dL (74-106); Potassium 4.3 mmol/L (3.5-5.1); SGOT/AST 28 U/L (14-36); SGPT/ALT 15 U/L (0-35); TROPONIN < 0.012 ng/mL (0.000-0.033); Total Protein 7.9 g/dL (6.3-8.2)
[2025-03-23 16:32] LABS: Amphetamine,Urine NEGATIVE (NEGATIVE); Barbiturate,Urine NEGATIVE (NEGATIVE); Benzodiazepine,Urine NEGATIVE (NEGATIVE); Cocaine,Urine NEGATIVE (NEGATIVE); Methadone,Urine NEGATIVE (NEGATIVE); Opiate,Urine NEGATIVE (NEGATIVE); PCP,Urine NEGATIVE (NEGATIVE); THC,Urine POSITIVE (NEGATIVE)
--- NOTE | 2025-03-23 16:36 | XRAY ---
CLINICAL HISTORY: dizziness COMPARISON: 02/16/2022 CT. TECHNIQUE: Axial non-contrast CT scan of the brain was performed from the skull base to the high parietal region with axial, sagittal, and coronal reconstructions. One of the following dose reduction techniques was utilized for this exam: Automated exposure control, adjustment of the mA and/or kV according to patient size, and use of iterative reconstruction. CTDI: 53.92 mGy , DLP: 1031.40 mGy.cm FINDINGS: Brain Parenchyma: Normal attenuation of the cerebral hemispheres, cerebellum, and brainstem. No evidence of acute infarct, hemorrhage, or mass effect. No abnormal areas of hypo- or hyperattenuation. Ventricular System: Ventricles are normal in size and configuration. No evidence of hydrocephalus or ventricular enlargement. Subarachnoid Spaces: Normal sulci and cisterns. No evidence of subarachnoid hemorrhage or extra-axial fluid collections. Cerebellum and Brainstem: No masses, lesions, or areas of abnormal density. Orbits: Normal appearance of the globes, optic nerves, and extraocular muscles. No evidence of orbital masses or abnormal density. Sinuses: Clear paranasal sinuses. No evidence of sinusitis or mucosal thickening. Mastoid Air Cells: Clear mastoid air cells. No evidence of mastoiditis. Skull: Normal skull morphology. IMPRESSION: 1. Normal CT of the head without contrast. 2. No interval changes. Electronically Signed by: Alvino Wing MD. (03/23/2025 16:36:00 EST)
[2025-03-23 16:51] VITALS: O2SAT 98
[2025-03-23 17:08] VITALS: BP 105/54; PULSE 65; RESP 17
--- NOTE | 2025-03-23 18:38 | XRAY ---
Indication: Chest pain. Comparison: August 10, 2017 Portable chest again hyperinflated and clear. Heart not enlarged. Bony thorax intact. No new/acute findings.
[2025-03-23 19:54] LABS: Total Cells Counted 100
== END 2025-03-23 17:10 | disposition home or self-care (01) ==
LOC: ED 14:54
DX: R42 Dizziness and giddiness (principal); F41.9 Anxiety disorder, unspecified; R07.9 Chest pain, unspecified; Z79.899 Other long term (current) drug therapy; Z72.0 Tobacco use